=== PATIENT | female | born 1950 | race Caucasian/White ===

== ENCOUNTER → 2022-06-14 13:20 | Outpatient (CLI) | payer MEDICARE, OTHER, SELFPAY ==
[2022-06-14 14:55] LABS: BUN Creatinine Ratio 24.7 (6-22); Blood Urea Nitrogen 21 mg/dL (7-17); Estimated Glomerular Filt Rate > 60 mL/min (>60)
== END ==
PROVIDERS: PCP Internal Medicine Geriatric Medicine; Referring Provider Surgery; Visit Provider Surgery
DX: K43.9 Ventral hernia without obstruction or gangrene (principal)
CPT/HCPCS: 36415; 82565; 84520

== ENCOUNTER → 2022-06-16 12:06 | Outpatient (CLI) | payer MEDICARE, OTHER, SELFPAY ==
--- NOTE | 2022-06-16 12:08 | DI.CT.S_ITS ---
PROCEDURE: CT ABDOMEN PELVIS W CON INDICATIONS: assess hernia TECHNIQUE: After the administration of intravenous contrast, axial sections acquired from the lung bases to the pubic symphysis. Coronal and sagittal reformats were performed. For radiation dose reduction, the following was used: automated exposure control, adjustment of mA and/or kV according to patient size. COMPARISON: CT 03/31/2021. FINDINGS: Image quality: Excellent. Lung bases: The stable 6-7 mm ground-glass nodule in the right lower lobe (3/11). Stable 4 mm solid nodule, left lower lobe (3/8). Heart: No significant findings. ABDOMEN: Liver: Stable benign cyst. Gallbladder: Unremarkable. Biliary ducts: Unremarkable. Pancreas: Unremarkable. Spleen: Unremarkable. Adrenal Glands: Stable 1.1 cm left adrenal nodule; stability most consistent with a benign adrenal adenoma. Kidneys and Ureters: Unremarkable. Stomach and Bowel: Stomach, small bowel loops, and colon are unremarkable. Prior partial colectomy, surgical mass masses in the deep pelvis. Peritoneum: No abnormal intraperitoneal fluid. No free air. Ventral Wall: Ventral hernia with 2 cm neck in the left upper quadrant (2/39). Ventral hernia containing a knuckle of large bowel wall, the neck measures 5.6 cm (2/48). Diastasis recti, containing loops of nondistended small bowel. The dehiscence measures 11 cm wide. Abdominal Nodes: No retroperitoneal or mesenteric adenopathy by size criteria. Vessels: Aorta and inferior vena cava are normal in size. PELVIS: Pelvic Organs: Unremarkable. Bladder: Unremarkable. Pelvic Nodes: No enlarged lymph nodes. Miscellaneous: No hernias are seen. Bones: Unremarkable. IMPRESSION: 1. Multiple ventral hernias and large diastasis recti, as detailed above. 2. Ground-glass nodule in the right lower lobe measuring 6-7 mm. This is stable since 2020. Q2Y follow-up is recommended for a total of 5 years (until 2025). Dictated by: Crow Ventura M.D. on 06/16/2022 at 12:42 Approved by: Crow Ventura M.D. on 06/16/2022 at 12:49
== END ==
PROVIDERS: PCP Internal Medicine Geriatric Medicine; Referring Provider Surgery; Visit Provider Surgery
DX: K43.9 Ventral hernia without obstruction or gangrene (principal); M62.08 Separation of muscle (nontraumatic), other site; R91.1 Solitary pulmonary nodule; E27.9 Disorder of adrenal gland, unspecified; K76.89 Other specified diseases of liver
CPT/HCPCS: 74177; Q9967

== ENCOUNTER 2022-06-29 06:33 | Observation (INO) | payer MEDICARE, OTHER, SELFPAY ==
[2022-06-27 09:46] VITALS: BMI 35.8
[2022-06-29] VITALS (26 sets, daily range): BP systolic 105–184; BP diastolic 59–91; PULSE 54–77; RESP 17–29; TEMP 36.5–36.8; O2SAT 91–98; BMI 35.8
[2022-06-29] MEDS: LACTATED RINGERS 1,000 ML 100 ML IV ×3 (07:17→13:50)
--- NOTE | 2022-06-29 07:43 | PM.PREOP ---
Pre-operative Note Interval Note History & Physical reviewed/Exam performed by Physician: Yes Changes to H&P: No
[2022-06-29] MEDS: CLINDAMYCIN 900 MG/50 ML PIGGYBACK 50 MG IV (08:00)
[2022-06-29] MEDS: ACETAMINOPHEN IV 1,000 MG/100 ML VIAL 400 MG IV (08:15)
--- NOTE | 2022-06-29 08:22 | SUR.OPER ---
Addendum entered by Liz Dahl R.N. 06/29/22 09:03: in addition: placed gel pad between urinary catheter tubing and patient's right posterior upper leg. Original Note: Supine on padded OR bed, head on pillow, arms secured on padded arm boards at <90 degrees abduction, legs uncrossed, safety belt at thigh, tape over blanket over lower legs. Gel pad placed between londono and patient's leg.
[2022-06-29] MEDS: BUPIVACAINE 0.25% (PF) VIAL 30 ML INJ (08:33)
[2022-06-29 08:52] LABS: COVID19 -Nasal RAPID Negative (Negative)
--- NOTE | 2022-06-29 12:44 | P.OP_ITS ---
Operative Date/Time/Diagnoses Date of procedure: 06/29/22 Time of procedure: 12:44 Pre-op diagnosis: incisional ventral hernia Post-op diagnosis: same Procedure & Clinicians Procedure: open repair of incisional ventral hernia lysis of adhesions component seperation omentectomy Same procedure as scheduled: Yes Indications: 71 y.o woman with a symptomatic incisional ventral hernia following colostomy and reversal. Surgeon: Souleymane Chau Benefits Specialist: Vipul Vieyra Anesthesia Type: General Operative Notes Findings: zambian cheese defect of midline fascia from epigastric to pubis. Incisional nilesh ia at prior colostomy site Specimen(s): none sent Estimated Blood Loss (mL): 100 Procedure in detail: Patient was brought to the operating room placed supine on table. Bilateral lower extremity compression devices were applied. General anesthesia was induced and she was intubated with an endotracheal tube. [place] catheter was sterilely placed. She received 900 mg of clindamycin prior to skin incision. Time-out was performed. Midline abdominal scar was sharply excised. The fascia of the lower midline incision was grasped elevated and sharply incised. The abdomen was entered atraumatically. There were extensive intra-abdominal adhesions involving numerous loops of bowel to the anterior abdominal wall. An extensive lysis of adhesions was performed using sharp dissection. With the abdominal viscera free attention was then turned to the hernia defect. There was a Mauritanian cheese hernia extending from slightly above the level of the pubis to the epigastric region. In addition there was a left abdominal wall incisional hernia at her prior colostomy site. A towel was placed over the intra-abdominal viscera nor protected out of harm's way will attention was focused to the hernia repair. First the hernia sac in the midline was excised. Next the retro rectus plane was entered by making incision just lateral to the medial edge of the rectus muscle beginning with the left side. Posterior fascia was dissected off of the rectus careful to preserve the neurovascular bundles. Small perforating branches were controlled with electrocautery. Posterior dissection was carried out to the level of the semilunaris. A similar dissection was performed on the right side. With the posterior sheath mobilized there was still significant midline tension with reapproximation of the anterior sheath. Therefore skin flaps were raised bilaterally in order to expose the anterior rectus sheath on each side. The fascia was exposed to the level of the semilunaris. At this point an anterior component separation was performed. The fascia lateral to the rectus was incised in vertical fashion from the level of the umbilicus to the epigastric region on both sides. This provided excellent medial mobilization so that the anterior rectus sheath could be reapproximated at the midline without tension. The posterior sheath was tight its tissue quite attenuated. Therefore an omentectomy was performed of the greater omentum from the transverse colon to provide additional intra abdominal capacity. Omentectomy was performed by division with clamps and silk suture. With the omentum resected the posterior sheath was reapproximated with 2-0 Vicryl in running fashion. There were several rents in the posterior layer that were closed with Ethibond suture under direct visualization in transverse fashion to minimize the tension with care taken to protect the underlying bowel. With the posterior wall closed a large Bard Ventralex mesh was placed into the retro rectus space. The anti adhesive side was placed down and there was approximately 8-10 cm of coverage on either side of the midline. With Ethibond suture the mesh was then secured to the overlying rectus muscle. Hemostasis was achieved. The anterior sheath was then closed in running fashion using 1. PDS suture. Two nineteen Moroccan Bravo drains were placed over the anterior fascia and brought out through the abdominal wall. The subcutaneous tissue was reapproximated with Vicryl suture. Skin was closed with 4-0 Monocryl followed by the application of Dermabond and abdominal binder. The patient tolerated the operation well was extubated and transferred to recovery room in stable condition. The assistance of Dr. Vieyra was critical in this case given the extensive intra-abdominal adhesions adhesions and for safe exposure in order to expose the retro rectus space. Complications: none Post-operative Condition: stable Disposition: Acute Care
[2022-06-29] MEDS: OXYCODONE/ACETAMINOPHEN 5/325 TABLET 1 TAB PO (13:01)
[2022-06-29] MEDS: CYCLOBENZAPRINE 10 MG TABLET 5 MG PO ×2 (13:40→21:45)
[2022-06-29] MEDS: KETOROLAC 30 MG/ML VIAL IV ×2 (13:40→19:31)
--- NOTE | 2022-06-29 14:02 | PC.NURSE ---
Addendum entered by Leigh Jeff R.N. 06/29/22 16:54: Pt desats to 85-82% but recovers quickly, refusing O2 at this time Original Note: 1310 Pt arrived via bed from OR, oriented to room and call light system, VSS, medicated for pain 08/31, bed low and locked, call light within reach, will continue to monitor
[2022-06-29] MEDS: OXYCODONE IR 5 MG TABLET PO ×2 (17:54→21:45)
[2022-06-29] MEDS: PANTOPRAZOLE DR 40 MG TABLET PO (20:10)
[2022-06-29] MEDS: HYDROMORPHONE 0.5 MG INJ IV (20:10)
[2022-06-30] VITALS (7 sets, daily range): BP systolic 99–141; BP diastolic 54–64; PULSE 66–77; RESP 17–20; TEMP 36.3–37.1; O2SAT 94–98
[2022-06-30] MEDS: CALCIUM CARBONATE 500 MG TAB 1000 MG PO (00:03)
[2022-06-30] MEDS: LACTATED RINGERS 1,000 ML 100 ML IV (00:03)
[2022-06-30] MEDS: OXYCODONE IR 5 MG TABLET PO ×6 (00:43→21:22)
[2022-06-30] MEDS: KETOROLAC 30 MG/ML VIAL IV ×4 (00:44→18:14)
[2022-06-30] MEDS: HYDROMORPHONE 0.5 MG INJ IV (03:43)
[2022-06-30] MEDS: CYCLOBENZAPRINE 10 MG TABLET 5 MG PO ×3 (06:32→21:22)
[2022-06-30] MEDS: METOPROLOL ER 50 MG TABLET PO (08:55)
[2022-06-30] MEDS: ESCITALOPRAM 10 MG TABLET PO (08:55)
[2022-06-30] MEDS: LORATADINE 10 MG TABLET PO (08:55)
[2022-06-30] MEDS: PANTOPRAZOLE DR 40 MG TABLET PO ×2 (08:55→21:22)
[2022-06-30] MEDS: buPROPion XL 150 MG TAB 300 MG PO (08:55)
[2022-06-30] MEDS: DOXYCYCLINE HYCLATE 100 MG TABLET PO (08:55)
[2022-06-30] MEDS: MONTELUKAST 10 MG TABLET PO (08:55)
[2022-06-30] MEDS: ENOXAPARIN 40 MG/0.4 ML SYRINGE SUBCUT (08:55)
--- NOTE | 2022-06-30 08:56 | P.PN_ITS ---
Subjective Subjective Date Patient Seen: 06/30/22 Time Patient Seen: 08:59 Interval history: Overnight she had significant abdominal pain and required IV pain medication for control. Has not been out of bed yet. Tolerating liquids Exam Vital Signs (past 8 hours): - 06/30/22 04:00 Temperature 98.0 F Pulse Rate 74 Respiratory Rate 18 Blood Pressure 141/64 H Pulse Oximetry 96 Oxygen Delivery Method Room Air Oxygen Flow Rate 0 Narrative Exam Narrative: General adult woman alert oriented no acute distress Abdomen appropriately tender to palpation. NIKI drains left minimal output. Right serosanguineous. [facility] Medical History (Updated 06/27/22 @ 10:00 by Hilary Cuenca RN) Arthritis Asthma Diverticulitis (2020) Surgical History (Updated 06/27/22 @ 09:59 by Hilary Cuenca RN) History of colostomy reversal (08/2021) History of knee replacement History of partial hysterectomy (1974) Hx of foot surgery (~2016) Hx of hernia repair (2021) Hx of knee surgery Hx of shoulder surgery Hx of thumb surgery (2008) Hx of tonsillectomy (1962) Status post Daljit's procedure (03/27/21) Social History household members: none Smoking Status: Never smoker alcohol intake: current Assessment & Plan Post-op Postoperative Procedures: Procedures Operation Date: 06/29/22 07:45 Actual Procedure Side Surgeon p Open Repair of Incisional Ventral Hernia with mesh Souleymane Chau MD Postoperative plan narrative: 69-year-old woman postoperative day 1 status post open repair of incisional ventral hernia with component separation. -out of bed ambulate -physical therapy -drain teaching -transition from IV to p.o. pain medication -she is ready for discharge when ambulatory and pain is adequately controlled with p.o. medication -SCDs only for today. Abdominal drain is still sanguinous
--- NOTE | 2022-06-30 13:56 | CM.DANOTE ---
DCP: Case received, EMR reviewed and met with patient. Introduced self and role. Was able to obtain information regarding patient's baseline activity status prior to hospitalization, as well her current living situation. DCP assessment completed with information currently available. Patient is a 71 year old female who admitted yesterday morning to the care of the surgical team. PCP: Dr. Don at the [facility]. Payer: confirmed: [employer]. Patient came to the hospital via private vehicle for a surgical procedure. Patient had open repair of incisional ventral hernia. Patient had her surgery yesterday. Met with patient in her room. She is alert and oriented, confirmed that she resides in [facility], she lives alone. At her baseline, she is independent, and drives. P: Surgeon mentioned that patient will need pain control with p.o. versus IV, and ambulatory. Plan is home when stable. Amrita Hernandez RN/Patient Office Rep Discharge Planning/Care Management CM Discharge Assessment Start: 06/30/22 13:52 Freq: Status: Active Protocol: Document 06/30/22 13:52 (Rec: 06/30/22 13:56 [id number]) Discharge Planning Assessment Assigned Sustainability Project Manager Amrita Hernandez RN/Patient Office Rep Advance Directives? No History Provided By Patient,Medical Record Prior Living Arrangements House Household Members none Type of transporation used prior to Drives own vehicle admit Independent with ADL's Yes Is patient alert and oriented? Yes Caregiver for Another No Barriers to Discharge No Discharge Plan Home Transportation Arrangement Friend or family member Referrals Initiated None needed Whiteboard Updated in Patient Room with Yes name and ext. # of Sustainability Project Manager Review Status In Process Next Review Type Continued Stay Review Pre-Anesthesia Assessment Start: 06/27/22 09:46 Freq: Status: Active Protocol: Document 06/27/22 09:46 [facility] (Rec: 06/27/22 10:02 [facility] [id number]) Pre-Anesthesia Assessment Patient Information Reviewed Via Chart Review Primary Care Provider Vidhya Don Seen Specialist in Last 12 Months Yes Specialist Seen General surgeon Primary Language Tuvaluan Verification Lead Required No Height 5 ft 4.5 in Weight 212 lb Body Mass Index (BMI) 35.8 Hearing Ability Normal Visual Assist Glasses Dentition Type Teeth, Natural Present Hx Anesthesia Reactions No Hx Family Anesthesia Reaction No Hx Malignant Hyperthermia No Hx Blood Transfusions Yes: 2007 Hx Blood Transfusion Reaction No Anesthesia Review Requested No Physician President No alcohol intake never Smoking Status Never smoker Substance Use Type does not use Patient is completely paralyzed or No completely immobile Mental Status Oriented to own ability Is patient on oxygen? No Hx Sleep Apnea No Currently Taking a Beta Checo Yes: Metoprolol Anti-Coagulant Therapy No Cardiac Testing No Hx Pacemaker/ICD No Pacemaker Rep Required? No Urinary Catheter Present No Hx Urinary Self Catheterization No Diabetes No Patient No Lactating No Marital Status Patient Discharge Plan Description Return Home
--- NOTE | 2022-06-30 16:06 | PT.IIE ---
Current Diagnoses Ventral hernia without obstruction or gangrene (06/29/22) Surgery Performed Operation Date: 06/29/22 07:45 Actual Procedures p Open Repair of Incisional Ventral Hernia with mesh - Souleymane Chau MD Surgical History (Last Updated 06/27/22 @ 09:59 by Hilary Cuenca, RN) History of colostomy reversal (08/2021) History of knee replacement History of partial hysterectomy (1974) Hx of foot surgery (~2016) Hx of hernia repair (2021) Hx of knee surgery Hx of shoulder surgery Hx of thumb surgery (2008) Hx of tonsillectomy (1962) Status post Daljit's procedure (03/27/21) Medical History (Last Updated 06/27/22 @ 10:00 by Hilary Cuenca RN) Arthritis Asthma Diverticulitis (2020) Physical Therapy Inpatient Evaluation/Re-Eval M1 PT/OT-IP Prior Functional Status Start: 06/30/22 13:47 Freq: NEEDED Status: Active Protocol: Document 06/30/22 15:38 [facility] (Rec: 06/30/22 16:05 [facility] [id number]) Medical Review Prior Functional Status Medical History Reviewed Yes Diet/Fluid Consistency Regular Communication WNL Mobility and Gait WNL no AD Activities of Daily Living and IADL's indep Social History Household Members none Living Arrangements House Number of Floors (Floors) One Floor Number of Stairs To Enter/Railing? 1 VENUS Home Environment Standard Height Toilet,Walk in Shower Home Equipment Front Wheel Walker,Four Wheel Walker,Straight Cane,Raised Toilet Seat w/Armrests,Grab Bars In Shower Additional Social History Comment pt has 3 friends that will transition helping w/care for as long as she needs M2 PT-IP Current Condition Start: 06/30/22 13:47 Freq: NEEDED Status: Active Protocol: Document 06/30/22 15:38 [facility] (Rec: 06/30/22 16:05 [facility] [id number]) Physical Therapy Current Condition Current Condition Evaluation Date 06/30/22 Treatment Diagnosis Open incision ventral repair M3 PT-IP Subjective Start: 06/30/22 13:47 Freq: NEEDED Status: Active Protocol: Document 06/30/22 15:38 [facility] (Rec: 06/30/22 16:05 [facility] [id number]) Subjective Physical Therapy Visit Type Type Initial Evaluation Visit Start Time 14:40 Visit Stop Time 15:10 Total Visit Minutes 30 Number of MOLD FILLER P[employer] DOLLS Visits 0 Therapy Pain Assessment Pain Present Pain Present Pain Reported Location Abdomen Pain Management Techniques Re-positioning,Timing of Activity with Medications M4 PT-IP Mobility and Gait Start: 06/30/22 13:47 Freq: NEEDED Status: Active Protocol: Document 06/30/22 15:38 [facility] (Rec: 06/30/22 16:05 [facility] [id number]) PT-Bed Mobility Assessment Rolling Type of Rolling Log Rolling,Roll to Right Level of Assist Standby Assistance Supine to Sit Supine to Sit Head of Bed Elevated Sit to Supine Sit to Supine Independent,Bedrails Scooting Scooting to Edge of Bed Standby Assistance Scooting Up and Down in Bed Independent PT-Transfer Assessment Sit to and From Stand Sit to and from Stand Independent Equipment Transfer Assistive Device Gait Belt,Front Wheeled Walker Orthotic/Prosthetic Devices or Brace: No Gait Assessment Gait Gait Assistance Required: Standby Assistance Distance (Feet) 350 Able to Maintain Weight Bearing Status Yes During Gait Assistive Devices Assistive Device Gait Belt,Front Wheeled Walker Orthotic/Prosthetic Devices or Brace: No Gait Deviations General Gait Pattern Flexed Trunk Factors Limiting Gait Function Factors Limiting Gait Function Pain Stair Climbing Assessment Evaluation Level of Assist On Stairs Standby Assistance Devices Stair Climbing Assistive Devices Straight Cane Technique/Endurance Stair Climbing Direction Ascend and Descend Number of Steps Climbed 1 Query Text: PT-Balance Assessment Sitting Balance and Reactions Static Sitting Balance Ability Normal Dynamic Sitting Balance Ability Normal Standing Balance and Reactions Static Standing Balance Ability Good Dynamic Standing Balance Ability Good Device Used FWW M5 PT-IP Objective Assessments Start: 06/30/22 13:47 Freq: NEEDED Status: Active Protocol: Document 06/30/22 15:38 [facility] (Rec: 06/30/22 16:05 [facility] [id number]) Orientation Orientation/Cognition Level of Alertness Alert Language Function Ability No Deficits Noted Safety Awareness Understands Safety Issues Memory Description No Deficits Noted Gross Range of Motion Lower Extremity ROM Assessment Within Functional Limits Strength Lower Extremity Strength Assessment Within Functional Limits M6 PT-IP Treatment Start: 06/30/22 13:47 Freq: NEEDED Status: Active Protocol: Document 06/30/22 15:38 [facility] (Rec: 06/30/22 16:05 [facility] [id number]) Physical Therapy Treatment Education Education Provided Safety Other Treatments Other Treatment Performed edu forms designer and long handle shower brush may be helpful M7 PT-IP Assessment and Plan Start: 06/30/22 13:47 Freq: NEEDED Status: Active Protocol: Document 06/30/22 15:38 [facility] (Rec: 06/30/22 16:05 [facility] [id number]) PT Summary Assessment and Plan Potential Rehabilitation Potential Good Status of Condition at Evaluation Evolving Summary Assessment Summary Pt did well with mobility today with good distance, good safety with walker and was at most SBA for all activity. She demonstrated understanding w/log roll and safety. She has good assistance at home and did well with step. At this time, pt would bneeift from cont mobilization w/ nursing staff but does not require skilled PT Frequency of Treatment Frequency Of Treatment Discharge Recommendations To Nursing Amount of Assist Needed Standby Assistance Discharge Recommendations PT Discharge Recommendations Home with Assistance, Outpatient PT Transportation Needs at Discharge Private Vehicle
[2022-07-01] VITALS: BP 111/60; PULSE 66; RESP 12; TEMP 36.7; O2SAT 95
[2022-07-01] MEDS: KETOROLAC 30 MG/ML VIAL IV ×3 (00:45→13:35)
[2022-07-01 01:00] VITALS: O2SAT 95
[2022-07-01 04:00] VITALS: BP 123/63; PULSE 66; RESP 17; TEMP 36.3; O2SAT 97
[2022-07-01] MEDS: CYCLOBENZAPRINE 10 MG TABLET 5 MG PO ×2 (06:22→13:35)
[2022-07-01 07:30] VITALS: BP 117/60; PULSE 61; RESP 20; TEMP 36.9; O2SAT 95
[2022-07-01] MEDS: DOXYCYCLINE HYCLATE 100 MG TABLET PO (08:12)
[2022-07-01] MEDS: OXYCODONE IR 5 MG TABLET PO ×2 (08:13→13:34)
[2022-07-01] MEDS: ESCITALOPRAM 10 MG TABLET PO (08:13)
[2022-07-01] MEDS: PANTOPRAZOLE DR 40 MG TABLET PO (08:13)
[2022-07-01] MEDS: MONTELUKAST 10 MG TABLET PO (08:13)
[2022-07-01] MEDS: buPROPion XL 150 MG TAB 300 MG PO (08:13)
[2022-07-01] MEDS: LORATADINE 10 MG TABLET PO (08:13)
[2022-07-01] MEDS: METOPROLOL ER 50 MG TABLET PO (08:14)
[2022-07-01 08:44] VITALS: BP 117/60
[2022-07-01 12:00] VITALS: BP 108/60; PULSE 61; RESP 19; TEMP 35.6; O2SAT 96
--- NOTE | 2022-07-08 10:22 | PM.DS.1 ---
History of Present Illness History of Present Illness Date Patient Seen: 07/01/22 Chief complaint: Open Incisional Ventral Hernia Repair *OPB* Narrative: 71-year-old woman underwent a elective open incisional hernia repair 06/29/2022. Discharge Providers Provider Date of admission: 06/29/22 06:33 Discharge Date: 07/01/22 Primary care physician: Vidhya Don MD Consults: 06/29/22 12:40 Consult to Physical Therapy Evaluate & Treat Comment: Physician Instructions: Evaluate and Treat Discharge provider: Souleymane Chau MD Summary Hospital Course Discharge Diagnosis: Incisional ventral hernia Hospital Course: She underwent a large open incisional ventral hernia repair June 29, 2022. She had significant postoperative pain and remained hospitalized until July 01 at which point her pain was well controlled with oral medication she was ambulatory tolerating a diet and safe for discharge home. She will follow up in surgical clinic for drain removal once output is less than 50 mL per day. Exam Vital Signs (past 8 hours): Oxygen Delivery Method Room Air Oxygen Flow Rate 0 Narrative Exam Narrative: General adult woman alert oriented no acute distress Chest nonlabored respiration Abdomen soft appropriately tender to palpation. Drains serosanguineous. [facility] Medical History (Updated 06/27/22 @ 10:00 by Hilary Cuenca RN) Arthritis Asthma Diverticulitis (2020) Surgical History (Updated 06/27/22 @ 09:59 by Hilary Cuenca RN) History of colostomy reversal (08/2021) History of knee replacement History of partial hysterectomy (1974) Hx of foot surgery (~2016) Hx of hernia repair (2021) Hx of knee surgery Hx of shoulder surgery Hx of thumb surgery (2008) Hx of tonsillectomy (1962) Status post Daljit's procedure (03/27/21) Social History household members: none Smoking Status: Never smoker alcohol intake: current Discharge Plan Discharge Plan Patient Disposition: Home Provider Discharge Comment: -Okay to shower tomorrow with drains covered -Do not submerge wounds in water until seen in follow-up. -No lifting >10 lbs x 4 weeks. -Walking only for exercise for 4 weeks. -No driving while taking narcotics. -contact surgical clinic for drain removal when output is 30-50 mL in 24 hour. -abdominal binder is for comfort wear as needed Discharge orders & Medications Prescriptions: New docusate sodium [Colace] 100 mg capsule 100 mg PO BID Qty: 30 0RF acetaminophen [Tylenol] 325 mg capsule 650 mg PO QID PRN (Reason: pain) Qty: 60 0RF oxycodone 5 mg tablet 5 mg PO Q6H PRN (Reason: pain) Qty: 30 0RF ibuprofen 200 mg tablet 400 mg PO Q6H Qty: 60 0RF Continued telmisartan 80 mg tablet 80 mg PO DAILY montelukast 10 mg tablet 10 mg PO DAILY metoprolol succinate 50 mg tablet extended release 24 hr 50 mg PO DAILY escitalopram oxalate 10 mg tablet 10 mg PO DAILY Patient Comments: At bedtime doxycycline hyclate 100 mg capsule 100 mg PO DAILY cholecalciferol (vitamin D3) 50 mcg (2,000 unit) capsule 50 mcg PO DAILY bupropion HCl 300 mg tablet extended release 24 hr 300 mg PO DAILY Patient Comments: With weight loss gzuzcu-hslghus-fmettnk 5,000 mcg-100 mg-5 mg capsule 1 cap PO DAILY cetirizine [Zyrtec] 10 mg tablet 10 mg PO DAILY pantoprazole 40 mg Tablet,Delayed Release (Dr/Ec) 40 mg PO BID No Action tramadol 50 mg tablet 50 mg PO TID PRN (Reason: pain) Qty: 20 0RF Follow up/Referrals: Souleymane Chau MD [Physician] - (Drain removal in surgical clinic when output is 30-50 ml per 24hrs) Diet/Activity/Treatments Diet: Regular Skin/Wound/Dressing Care Report to your healthcare provider any signs of infection, such as:: chills, fever, increased pain, unusual drainage and unusual redness Visit Report/Discharge Packet Stand Alone Forms: Patient Portal/API, Stroke Signs & Symptoms Discharge Data Primary Care Provider: Vidhya Don Attending Provider: Souleymane Chau
== END 2022-07-01 16:24 | disposition home or self-care (01) ==
LOC: OR 06:34 → ICU 13:30
PROVIDERS: Admitting Provider Surgery; PCP Internal Medicine Geriatric Medicine; Referring Provider Surgery; Visit Provider Surgery
PROC: (CPT 49595; principal; 2022-06-29 07:45)
DX: K43.9 Ventral hernia without obstruction or gangrene (principal); K43.0 Incisional hernia with obstruction, without gangrene; K66.0 Peritoneal adhesions (postprocedural) (postinfection)
CPT/HCPCS: 49595; 15734 ×2; 87635; 97116; 97162; C9803; G0378; J0131; J0330; J1100; J1170; J1650; J1885; J2250; J2405; J2704; J3010; J3490

== ENCOUNTER 2022-07-13 21:50 | Inpatient (IN) | payer MEDICARE, OTHER, SELFPAY ==
[2022-07-13 22:01] VITALS: BP 123/75; PULSE 118; RESP 18; TEMP 37.1; O2SAT 97; BMI 35.5
--- NOTE | 2022-07-13 22:11 | DI.RAD.S_ITS ---
PROCEDURE: XR CHEST 1V INDICATIONS: suspected sepsis TECHNIQUE: One view of the chest was acquired. COMPARISON: [facility], CR, XR CHEST 1 VIEW, 04/05/2021, 1:37. FINDINGS: Surgical changes and devices: None. Lungs and pleura: Lungs are clear. No pleural effusions or pneumothorax. Mediastinum: Mediastinal contours appear normal. Heart size is normal. Bones and chest wall: No suspicious bony lesions. Overlying soft tissues appear unremarkable. IMPRESSION: 1. No acute cardiopulmonary disease. Dictated by: Jewel Basilio M.D. on 07/14/2022 at 0:22 Approved by: Jewel Basilio M.D. on 07/14/2022 at 0:22
[2022-07-13 22:56] LABS: Add Manual Diff / Slide Review NO; Basophils Absolute Auto 100 /uL (0-100); Basophils Percent Auto 0.6 % (0-2); Eosinophils Absolute Auto 0 /uL (0-450); Eosinophils Percent Auto 0.1 % (2-4); Hematocrit 36.9 % (36-46); Hemoglobin 12.4 g/dL (12.0-16.0); Lymphocytes Absolute Auto 1100 /uL (1100-4500); Lymphocytes Percent Auto 6.3 % (25-40); Mean Corpuscular HGB Conc 33.5 % (30-36); Mean Corpuscular Hemoglobin 28.3 PG (26-34); Mean Corpuscular Volume 84.6 fL (80-100); Monocytes Absolute Auto 1000 /uL (0-900); Monocytes Percent Auto 5.2 % (3-14); Neutrophils Absolute Auto 16000 /uL (1500-7000); Neutrophils Percent Auto 87.8 % (50-75); Platelet Count 407 X10^3/uL (150-400); Red Blood Cell Count 4.36 X10^6/uL (4.0-5.2); Red Cell Distribution Width 13.5 % (11.6-14.8); White Blood Cell Count 18.2 X10^3/uL (4.5-11.0)
[2022-07-13 23:04] LABS: INR 1.3 (0.9-1.3); Prothrombin Time 15.4 SECONDS (10.1-12.7)
[2022-07-13 23:07] LABS: PTT Partial Thromboplastin Tim 32 SECONDS (26-36)
[2022-07-13 23:08] LABS: Lactate (Lactic Acid) 1.3 mmol/L (0.7-2.1)
[2022-07-13 23:09] LABS: Alanine Aminotransferase 21 IU/L (<35); Albumin 3.8 g/dL (3.5-5.0); Albumin Globulin Ratio 1.2 (1.0-2.8); Alkaline Phosphatase 102 U/L (38-126); Aspartate Aminotransferase 20 IU/L (14-36); BUN Creatinine Ratio 15.6 (6-22); Bilirubin Total 1.5 mg/dL (0.2-1.3); Blood Urea Nitrogen 15 mg/dL (7-17); Calcium 8.6 mg/dL (8.4-10.2); Carbon Dioxide 24 mmol/L (22-32); Chloride 99 mmol/L (98-107); Estimated Glomerular Filt Rate > 60 mL/min (>60); Globulin 3.3 g/dL (1.7-4.1); Glucose 155 mg/dL (80-110); HEMOLYSIS < 15 (0-50); Lipase 47 U/L (23-300); Potassium 3.9 mmol/L (3.4-5.1); Sodium 134 mmol/L (137-145); Total Protein 7.1 g/dL (6.3-8.2)
[2022-07-13 23:12] VITALS: BP 107/57; PULSE 91; O2SAT 99
--- NOTE | 2022-07-13 23:16 | DI.CT.S_ITS ---
PROCEDURE: CT ABDOMEN PELVIS W CON INDICATIONS: abdomen pain, N/V, recent surgery TECHNIQUE: After the administration of IV contrast, axial sections were acquired from the lung bases to the pubic symphysis. Coronal and sagittal reformats were performed. For radiation dose reduction, the following was used: automated exposure control, adjustment of mA and/or kV according to patient size. COMPARISON: [facility], CT, CT ABDOMEN PELVIS WITH CONTRAST, 04/18/2021, 14:09. [facility], CT, CT ABDOMEN PELVIS WITH CONTRAST, 04/10/2021, 15:24. [facility], CT, CT ABDOMEN PELVIS W CON, 06/16/2022, 12:11. FINDINGS: Image quality: Excellent. Lung bases: A left lower lobe 0.4 cm nodule on series 3, image 3 appears unchanged. Heart: Heart is normal in size. ABDOMEN: Liver: There is hypoattenuation of the liver consistent with fatty infiltration. A lobulated cyst is noted in the right hepatic lobe. Wall Gallbladder: Within normal limits without calcified gallstones. Biliary ducts: No biliary ductal dilatation. Pancreas: Unremarkable. Spleen: Normal in size. Adrenal Glands: No adrenal nodules. Kidneys and Ureters: No hydronephrosis. Stomach and Bowel: Stomach, small bowel loops, and colon are normal in caliber and wall thickness. Peritoneum: No abnormal intraperitoneal fluid. No free air. Ventral Wall: There are postsurgical changes within the ventral abdominal wall with a midline incision noted. There is extensive subcutaneous edema with loculated subcutaneous fluid collections bilaterally as well as associated scattered foci of soft tissue gas in the collections. The findings are consistent with sequelae of recent surgery with suspected infection. Abdominal Nodes: No retroperitoneal or mesenteric adenopathy by size criteria. Vessels: Aorta and inferior vena cava are normal in size. PELVIS: Pelvic Organs: The uterus is surgically absent. Bladder: Unremarkable. Pelvic Nodes: No enlarged lymph nodes. Miscellaneous: No inguinal hernias are seen. Bones: Visualized osseous structures demonstrate no suspicious focal lesions. IMPRESSION: 1. Postsurgical changes within the ventral abdominal wall with multiple loculated fluid collections containing foci of internal gas. The findings are suspicious for possible abscess formation and correlation is recommended clinically. Dictated by: Jewel Basilio M.D. on 07/14/2022 at 0:53 Approved by: Jewel Basilio M.D. on 07/14/2022 at 0:58
--- NOTE | 2022-07-13 23:16 | ED.NAVMDI ---
HPI - Nausea/Vomiting/Diarrhea General Chief complaint: Dizziness Stated complaint: vomiting s/p abd surgery 2 wks ago Time Seen by Provider: 07/13/22 22:43 Source: patient Mode of arrival: Ambulatory History of Present Illness HPI Narrative: 71-year-old female nonsmoker with history of hypertension and recent ventral hernia repair 2 weeks ago presents with a family friend and a chief complaint of worsening abdominal pain and persistent nausea and vomiting over the past 24 hours or so. She states that she had her drains removed a few days ago and her symptoms have been going downhill ever since. She has increasing pain and decreasing tolerance of food and drink. She is become dizzy, weak and lightheaded and generally fatigued. She is had decreased bowel movements and denies any dysuria, frequency or urgency. She denies any obvious fever or chills. Related Data Home Medications Medication Instructions Recorded Confirmed biotin 5,000 mcg-choline 100 1 cap PO DAILY 06/09/22 06/29/22 mg-silicon 5 mg capsule bupropion HCl 300 mg 24 hr tablet, 300 mg PO DAILY Trying out to see 06/09/22 06/29/22 extended release if it helps cetirizine 10 mg tablet (Zyrtec) 10 mg PO DAILY Allergies 06/09/22 06/29/22 cholecalciferol (vitamin D3) 50 50 mcg PO DAILY 06/09/22 06/29/22 mcg (2,000 unit) capsule doxycycline hyclate 100 mg capsule 100 mg PO DAILY Rosacea 06/09/22 06/29/22 escitalopram oxalate 10 mg tablet 10 mg PO DAILY Stress? 06/09/22 06/29/22 metoprolol succinate 50 mg 50 mg PO DAILY Blood pressure 06/09/22 06/29/22 tablet,extended release 24 hr montelukast 10 mg tablet 10 mg PO DAILY Allergies 06/09/22 06/29/22 telmisartan 80 mg tablet 80 mg PO DAILY Blood pressure? 06/09/22 06/29/22 pantoprazole 40 mg tablet,delayed 40 mg PO BID 06/27/22 06/29/22 release Previous Rx's Medication Instructions Recorded acetaminophen 325 mg capsule 650 mg PO QID PRN pain #60 caps 06/30/22 (Tylenol) docusate sodium 100 mg capsule 100 mg PO BID #30 caps 06/30/22 (Colace) ibuprofen 200 mg tablet 400 mg PO Q6H #60 tabs 06/30/22 oxycodone 5 mg tablet 5 mg PO Q6H PRN pain #30 tabs 06/30/22 tramadol 50 mg tablet 50 mg PO TID PRN pain #20 tabs 07/06/22 Allergies Allergy/AdvReac Type Severity Reaction Status Date / Time adhesive tape Allergy Pulls Verified 06/29/22 07:19 skin off apple Allergy Makes Verified 06/29/22 07:19 mouth peel herrera Allergy Makes Verified 06/29/22 07:19 mouth peel chlorhexidine Allergy Rash Verified 07/13/22 22:01 [From Hibiclens] iodine Allergy Vergara Verified 06/29/22 07:19 minocycline Allergy Pt does Verified 06/29/22 07:19 not list reaction nickel Allergy Rash Verified 06/29/22 07:19 Penicillins Allergy Breathing Verified 06/29/22 07:19 valdecoxib [From Bextra] Allergy Verified 06/29/22 07:19 Review of Systems Review of Systems Narrative: GENERAL: See HPI HEENT: Denies sinus pain, ear pain, sore throat, difficulty swallowing, dizziness. RESPIRATORY: Denies dyspnea, cough, wheezing, hemoptysis, sputum. CARDIOVASCULAR: Denies chest pain, palpitations, orthopnea, edema, GASTROINTESTINAL: See HPI : Denies dysuria, frequency, incontinence, hematuria, urinary retention. MUSCULOSKELETAL: denies weakness, joint pain, or bony pain SKIN: Denies rash, skin lesions, or other NEUROLOGIC: Denies weakness, headache, numbness, change in speech, confusion, seizures, incoordination. PSYCHIATRIC: No concerning psychosocial issues. 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 Well-developed patient, in mild distress. She clearly feels unwell, holding an emesis bag HEAD: Atraumatic. Normocephalic. EYES: Pupils equal round and reactive. Extraocular motions intact. No scleral icterus. No injection or drainage. ENT: Dry mucous membrane Nose without bleeding, purulent drainage. Throat without erythema, tonsillar hypertrophy or exudate. Airway patent. NECK: Trachea midline. Non tender CARDIOVASCULAR: Regular rate and rhythm without murmurs, gallops, or rubs. RESPIRATORY: Clear to auscultation. Breath sounds equal bilaterally. No wheezes, rales, or rhonchi. GASTROINTESTINAL: Abdomen soft, distended with tenderness in the right lower quadrant. Central incision is clean, dry and intact, bowel sounds distant in decreased EXTREMITIES: No edema or joint tenderness. BACK: Nontender without deformity or crepitance. No flank tenderness. NEURO: AOx3. SKIN: Poor skin turgor No rash or erythema of visible areas Initial Vital Signs Initial Vital Signs: Vital Signs Temperature 98.7 F 07/13/22 22:01 Pulse Rate 118 H 07/13/22 22:01 Respiratory Rate 18 07/13/22 22:01 Blood Pressure 123/75 07/13/22 22:01 Pulse Oximetry 97 07/13/22 22:01 Oxygen Delivery Method Room Air 07/13/22 22:01 Course Orders Ordered: ED Orders 07/13/22 22:11 XR chest 1V Stat EKG-12 Lead Stat RT Consult Eval and Treat NOW 07/13/22 22:41 Blood Culture Stat Complete Blood Count AUTO DIFF Stat Comprehensive Metabolic Panel Stat Lactate (Lactic Acid) Stat Lipase Stat PTT Partial Thromboplastin Krishan Stat Procalcitonin Stat Prothrombin Time INR Stat 07/13/22 23:16 CT abdomen pelvis w con Stat 07/14/22 01:18 COVID19 -Nasal RAPID Stat Acetaminophen (Acetaminophen 325 Mg Tablet) 650 mg PO Q6H OZZY Last Admin: 07/14/22 02:57 Dose: 650 mg Documented By: CS Enoxaparin Sodium (Enoxaparin 30 Mg/0.3 Ml Syringe) 30 mg SUBCUT DAILY COUNT INCLUDES THE [facility] Famotidine (Famotidine 20 Mg/2 Ml Vial) 20 mg IV NOW COUNT INCLUDES THE [facility] Last Admin: 07/13/22 23:39 Dose: 20 mg Documented By: ROCKY Dextrose/Lactated Ringer's (Dextrose 5%-Lactated Ringers) 1,000 mls @ 120 mls/hr IV CONT COUNT INCLUDES THE [facility] Last Admin: 07/14/22 02:57 Dose: 120 mls/hr Documented By: FEDERICO Piperacillin Sod/Tazobactam (Sod 3.375 gm/ Sodium Chloride) 100 mls @ 25 mls/hr IV Q8H COUNT INCLUDES THE [facility] Ibuprofen (Ibuprofen 400 Mg Tablet) 400 mg PO Q4H PRN PRN Reason: Pain, Mild (1-3) Morphine Sulfate (Morphine 4 Mg/Ml Inj) 3 mg IV Q4HR PRN PRN Reason: Pain, Severe (7-10) Naloxone HCl (Naloxone 0.4 Mg/Ml Vial) 0.2 mg IV Q2MIN PRN PRN Reason: Opiate Reversal Ondansetron HCl (Ondansetron 4 Mg Odt) 4 mg SL NOW PRN PRN Reason: Nausea And Vomiting Ondansetron HCl (Ondansetron 4 Mg/2 Ml Inj) 4 mg IV NOW PRN PRN Reason: Nausea And Vomiting Oxycodone HCl (Oxycodone Ir 5 Mg Tablet) 5 mg PO Q3H PRN PRN Reason: Pain, Moderate (4-6) Pantoprazole Sodium (Pantoprazole 40 Mg Vial) 40 mg IV DAILY COUNT INCLUDES THE [facility] Prochlorperazine (Prochlorperazine 10 Mg/2 Ml Vial) 10 mg IV Q6HR PRN PRN Reason: Nausea Discontinued Medications Diphenhydramine HCl (Diphenhydramine 50 Mg/Ml Vial) 50 mg IV NOW ONE Stop: 07/13/22 23:23 Last Admin: 07/13/22 23:38 Dose: 50 mg Documented By: ROCKY Sodium Chloride (Normal Saline 0.9%) 1,000 mls @ 1,000 mls/hr IV BOLUS ONE Stop: 07/13/22 23:09 Last Infusion: 07/14/22 00:58 Dose: 0 mls/hr Documented By: Admin: 07/13/22 23:39 Dose: 1,000 mls/hr Documented By: ROCKY Piperacillin Sod/Tazobactam (Sod 4.5 gm/ Sodium Chloride) 100 mls @ 200 mls/hr IV NOW ONE Stop: 07/14/22 01:14 Last Infusion: 07/14/22 02:11 Dose: 0 mls/hr Documented By: Admin: 07/14/22 01:31 Dose: 200 mls/hr Documented By: ROCKY Methylprednisolone (Methylprednisolone 125 Mg/2 Ml Vial) 125 mg IV NOW ONE Stop: 07/13/22 23:23 Last Admin: 07/13/22 23:38 Dose: 125 mg Documented By: ROCKY Pantoprazole Sodium (Pantoprazole 40 Mg Vial) 40 mg IV NOW ONE Stop: 07/13/22 23:23 Last Admin: 07/13/22 23:40 Dose: 40 mg Documented By: ROCKY Consultations Consultation #1: Discussed with on-call general surgeon, Dr. Calles, she agrees with antibiotics, pain control, antiemetics and admission. Vital Signs Vital signs: Vital Signs - 8 hr 07/13/22 22:01 07/13/22 23:12 07/13/22 23:12 Temperature 98.7 F Pulse Rate 118 H 91 H Respiratory Rate 18 Blood Pressure 123/75 107/57 L Pulse Oximetry 97 99 Oxygen Delivery Method Room Air 07/13/22 23:30 07/13/22 23:30 07/14/22 00:11 Temperature Pulse Rate 94 H 88 Respiratory Rate Blood Pressure 110/63 Pulse Oximetry 97 99 Oxygen Delivery Method 07/14/22 00:30 07/14/22 01:00 07/14/22 01:01 Temperature Pulse Rate 87 89 Respiratory Rate Blood Pressure 119/69 Pulse Oximetry 99 100 Oxygen Delivery Method 07/14/22 01:01 Temperature Pulse Rate 89 Respiratory Rate Blood Pressure Pulse Oximetry 98 Oxygen Delivery Method MDM - Nausea/Vomiting/Diarrhea Lab Data 07/13/22 22:41 07/13/22 22:41 Labs: Lab Results 07/13/22 07/13/22 07/13/22 Range/Units 22:41 22:41 22:41 WBC 18.2 H (4.5-11.0) X10^3/uL RBC 4.36 (4.0-5.2) X10^6/uL Hgb 12.4 (12.0-16.0) g/dL Hct 36.9 (36-46) % MCV 84.6 (80-100) fL MCH 28.3 (26-34) PG MCHC 33.5 (30-36) % RDW 13.5 (11.6-14.8) % Plt Count 407 H (150-400) X10^3/uL Neut % (Auto) 87.8 H (50-75) % Lymph % (Auto) 6.3 L (25-40) % Stanley % (Auto) 5.2 (3-14) % Eos % (Auto) 0.1 L (2-4) % Baso % (Auto) 0.6 (0-2) % Neut # (Auto) 04649 H (3608-9175) /uL Lymph # (Auto) 1100 (8931-3944) /uL Stanley # (Auto) 1000 H (0-900) /uL Eos # (Auto) 0 (0-450) /uL Baso # (Auto) 100 (0-100) /uL PT 15.4 H (10.1-12.7) SECONDS INR 1.3 (0.9-1.3) APTT 32 (26-36) SECONDS Sodium 134 L (137-145) mmol/L Potassium 3.9 (3.4-5.1) mmol/L Chloride 99 (98-107) mmol/L Carbon Dioxide 24 (22-32) mmol/L BUN 15 (7-17) mg/dL Creatinine 0.96 (0.52-1.04) mg/dL Estimated GFR > 60 (>60) mL/min BUN/Creatinine Ratio 15.6 (6-22) Glucose 155 H (80-110) mg/dL Lactate (0.7-2.1) mmol/L Calcium 8.6 (8.4-10.2) mg/dL Total Bilirubin 1.5 H (0.2-1.3) mg/dL AST 20 (14-36) IU/L ALT 21 (<35) IU/L Alkaline Phosphatase 102 (38-126) U/L Total Protein 7.1 (6.3-8.2) g/dL Albumin 3.8 (3.5-5.0) g/dL Globulin 3.3 (1.7-4.1) g/dL Albumin/Globulin Ratio 1.2 (1.0-2.8) Lipase 47 (23-300) U/L Procalcitonin 0.15 (<0.5) ng/mL 07/13/22 Range/Units 22:41 WBC (4.5-11.0) X10^3/uL RBC (4.0-5.2) X10^6/uL Hgb (12.0-16.0) g/dL Hct (36-46) % MCV (80-100) fL MCH (26-34) PG MCHC (30-36) % RDW (11.6-14.8) % Plt Count (150-400) X10^3/uL Neut % (Auto) (50-75) % Lymph % (Auto) (25-40) % Stanley % (Auto) (3-14) % Eos % (Auto) (2-4) % Baso % (Auto) (0-2) % Neut # (Auto) (8805-8318) /uL Lymph # (Auto) (8357-4827) /uL Stanley # (Auto) (0-900) /uL Eos # (Auto) (0-450) /uL Baso # (Auto) (0-100) /uL PT (10.1-12.7) SECONDS INR (0.9-1.3) APTT (26-36) SECONDS Sodium (137-145) mmol/L Potassium (3.4-5.1) mmol/L Chloride (98-107) mmol/L Carbon Dioxide (22-32) mmol/L BUN (7-17) mg/dL Creatinine (0.52-1.04) mg/dL Estimated GFR (>60) mL/min BUN/Creatinine Ratio (6-22) Glucose (80-110) mg/dL Lactate 1.3 (0.7-2.1) mmol/L Calcium (8.4-10.2) mg/dL Total Bilirubin (0.2-1.3) mg/dL AST (14-36) IU/L ALT (<35) IU/L Alkaline Phosphatase (38-126) U/L Total Protein (6.3-8.2) g/dL Albumin (3.5-5.0) g/dL Globulin (1.7-4.1) g/dL Albumin/Globulin Ratio (1.0-2.8) Lipase (23-300) U/L Procalcitonin (<0.5) ng/mL MDM Narrative Medical decision making narrative: CC: 71-year-old female with recent abdominal surgery presents with nausea and vomiting Complicating co-morbidities: Age, BMI 34 Data collected from: Patient Medical records reviewed: Prior notes reviewed in our EMR Differential considered, but not limited to: Bowel obstruction, infection, dehydration, electrolyte abnormality Exam documented above, pertinent findings include: Dry mucous membranes and poor skin turgor, suggestion of dehydration, abdomen soft but distended and tender in the right lower quadrant Lab Test results independently reviewed as above. Pertinent findings: Leukocytosis with relative left shift, no signs of anemia, electrolytes without critical abnormalities, renal function at baseline Independently reviewed EKG as above Imaging studies independently reviewed: CTs suggests multiple loculated fluid collections suggestive of abscess Consultations: Dr. Calles, see details above Treatments: Fluids, antiemetics, antibiotics, pain control Patient with recent surgery presents with nausea and vomiting and signs of dehydration. Labs suggest a leukocytosis with left shift and imaging demonstrates no obstruction but there is suggestion of abscess. Patient requires hospitalization for ongoing treatment, stabilization and characterization of her condition. Patient and family understand and agree with diagnosis and plan Discharge Plan Departure Patient Disposition: Admitted As Inpatient Clinical Impression: Vomiting, Acute dehydration, Abdominal wall abscess Admit Date/Time: 07/14/22 01:15 Admit Provider: Fatemeh Calles
[2022-07-13 23:25] LABS: Procalcitonin 0.15 ng/mL (<0.5)
[2022-07-13 23:30] VITALS: BP 110/63; PULSE 94; O2SAT 97
[2022-07-13] MEDS: diphenhydrAMINE 50 MG/ML VIAL IV (23:38)
[2022-07-13] MEDS: methylPREDNISolone 125 MG/2 ML VIAL IV (23:38)
[2022-07-13] MEDS: FAMOTIDINE 20 MG/2 ML VIAL IV (23:39)
[2022-07-13] MEDS: SODIUM CHLORIDE 0.9% 1,000 ML 1000 ML IV (23:39)
[2022-07-13] MEDS: PANTOPRAZOLE 40 MG VIAL IV (23:40)
[2022-07-14] VITALS (16 sets, daily range): BP systolic 100–142; BP diastolic 49–76; PULSE 62–100; RESP 14–20; TEMP 35.8–36.7; O2SAT 96–100; BMI 35.5; BMI 34.8
[2022-07-14] MEDS: PIPERACILLIN/TAZO 4.5 GM in SODIUM CHLORIDE 0.9% 100 ML IV (01:31)
[2022-07-14 01:37] LABS: COVID19 -Nasal RAPID Negative (Negative)
[2022-07-14] MEDS: ACETAMINOPHEN 325 MG TABLET 650 MG PO ×2 (02:57→19:54)
[2022-07-14] MEDS: DEXTROSE 5%-LACTATED RINGERS 1,000 ML 120 ML IV (02:57)
--- NOTE | 2022-07-14 04:15 | PC.NURSE ---
Order for Pipercilin-tazobactium scheduled at 0130 not given because it was given in the ED. [facility] called and wants to change the antibiotic as pt has stated allergy to Zosyn. Zosyn given in ED along with benedryl, famotidine, and solumedrol for allergy to CT contrast dye. ED stated no issues with Zosyn there. Will let dayshift know the issues.
[2022-07-14 09:22] LABS: Add Manual Diff / Slide Review NO; Basophils Absolute Auto 0 /uL (0-100); Basophils Percent Auto 0.2 % (0-2); Eosinophils Absolute Auto 0 /uL (0-450); Hematocrit 33.1 % (36-46); Hemoglobin 11.3 g/dL (12.0-16.0); Lymphocytes Absolute Auto 500 /uL (1100-4500); Mean Corpuscular Hemoglobin 29.2 PG (26-34); Mean Corpuscular Volume 85.9 fL (80-100); Monocytes Absolute Auto 200 /uL (0-900); Monocytes Percent Auto 2.2 % (3-14); Neutrophils Absolute Auto 9400 /uL (1500-7000); Neutrophils Percent Auto 92.6 % (50-75); Platelet Count 272 X10^3/uL (150-400); Red Blood Cell Count 3.85 X10^6/uL (4.0-5.2); Red Cell Distribution Width 13.8 % (11.6-14.8); White Blood Cell Count 10.1 X10^3/uL (4.5-11.0)
--- NOTE | 2022-07-14 11:25 | CM.DANOTE ---
Initial DCP Assessment Note Pt is a 71 yo female, resident of [place], arrives to the ER with complaints of dizziness and N/V/D, now two weeks s/p ventral hernia repair PCP: Vidhya Don Payer: [facility] Spoke w/Dr Chau this morning who anticipates taking patient to the OR today to drain the abdominal wall abscess that's been seen on imaging. Dr Chau anticipates placing a wound vac on in the OR Patient will be discharged home as early as tomorrow and will require/benefit from 1. Home wound vac 2. HH RN to assist in changing wound vac x2 weekly 3. New patient appt at [place] wound care clinic P [phone] Met w/patient to introduce self and role. Patient w/quite an extensive hx of abd surgery and post operative complications; hx ostomy and wound vac, lengthy stay at [facility] and subsequent stay at [facility] Patient wants to return home and feels she can do this if she has assist with the wound vac changes. Patient requests a referral to [facility] services and is agreeable to outpatient wound care follow up at [facility] if it's available. PCP Vidhya Don works out of the [facility] at [place] Patient reports she does not have assistance from anyone once home. Patient is indp and active at baseline, drives, and hopeful she can continue to do this s/p surgery and discharge from PT order placed for post operative assist in dispo recommendations; discussed w/ Jody, PT Referral to [facility] started then placed call to Carlos Sargent at [facility] P [phone] Email: [email or web address] who suggested emailing patient's demo sheet to begin the referral and insurance auth process for the home wound vac. H+P, info on wound vac etc needs to be sent to Carlos once available Plan: Anticipate discharge home w/wound vac thru [facility], via friend to transport, with [place] [facility]IND[facility] RN (start of care?) and outpatient wound care (attempting to secure an appt before discharge) CM team following closely for coordination NIURKA Munguia Discharge Planning/Care Management CM Discharge Assessment Start: 07/14/22 11:12 Freq: Status: Active Protocol: Document 07/14/22 11:13 RUFINA (Rec: 07/14/22 11:25 [email or web address] [id number]) Discharge Planning Assessment Assigned New Car [employer]ic NIURKA Terrell DPOA/Assigned Designee Name Roopa Cooper, friend Contact Information [phone] Advance Directives? No History Provided By Patient Household Members none Type of transporation used prior to Drives own vehicle admit Willing to Return to Facility? No: Recent stay at [facility], wants to go home Independent with ADL's Yes Is patient alert and oriented? Yes Patient/Family Preference Home with Home Health Barriers to Discharge No Discharge Plan Home with Home Health Transportation Arrangement Friend or family member Referrals Initiated Home Health Additional Comment wound vac, HH RN, wound care clinic SNF/HH Preference [facility] Has Agency SNF been contacted Yes
[2022-07-14] MEDS: PANTOPRAZOLE 40 MG VIAL IV (11:45)
--- NOTE | 2022-07-14 12:42 | CM.DPNOTE ---
David from [facility] said they can see the pt. for RN services on Monday, 07/18. He will add her to their schedule. I told David there is a good chance she will be discharged on Mon. 07/15. Lauren Chavarria CM Assist.
[2022-07-14] MEDS: PIPERACILLIN/TAZO 3.375 GM in SODIUM CHLORIDE 0.9% 100 ML IV ×2 (12:51→21:07)
--- NOTE | 2022-07-14 13:00 | PT-IP ANOTE ---
Physical therapy order received. Pt discussed at rounds. She is going to surgery today. Hold PT eval until tomorrow after surgery.
--- NOTE | 2022-07-14 13:24 | PM.HP.1 ---
History of Present Illness History of Present Illness Date Patient Seen: 07/14/22 Chief complaint: vomiting s/p abd surgery 2 wks ago Narrative: 71-year-old woman 2 weeks status post open ventral hernia repair of a large abdominal incisional hernia with retro rectus mesh placement. She had surgical drains which were within the abdominal wall removed several days ago in surgical clinic and subsequently she developed abdominal pain and nausea. Yesterday she had significant emesis and has been unable to keep food down. On arrival last night to the emergency department at [facility] she was found to have a white blood cell count of 18 afebrile vital signs were within normal limits. CT abdomen pelvis demonstrates extensive postsurgical changes within the abdominal wall with fluid collections. No distinct walled fluid collection. She feels significantly better than she did last night at admission. No further nausea or emesis. After fluid resuscitation white blood cell count is now 10. She has had no wound drainage from the incision she reports that the surgical drains been serosanguineous character. Patient History Medical History Arthritis Asthma Diverticulitis (2020) Surgical History History of colostomy reversal (08/2021) History of knee replacement History of partial hysterectomy (1974) Hx of foot surgery (~2016) Hx of hernia repair (2021) Hx of knee surgery Hx of shoulder surgery Hx of thumb surgery (2008) Hx of tonsillectomy (1962) Status post Daljit's procedure (03/27/21) Family & Social History Social History: household members none Safety & Behavioral: Feels Safe in Current Yes Environment Been Physically Hurt or No Threatened By a Person Tobacco & Substance use: Smoking Status Never smoker alcohol intake current alcohol intake frequency holiday/special occasion Substance Use Type does not use Meds Home Medications and Allergies Home Medications Medication Instructions Recorded Confirmed Type biotin 5,000 mcg-choline 100 1 cap PO DAILY 06/09/22 07/14/22 History mg-silicon 5 mg capsule bupropion HCl 300 mg 24 hr tablet, 300 mg PO DAILY Trying out to see 06/09/22 07/14/22 History extended release if it helps cetirizine 10 mg tablet (Zyrtec) 10 mg PO DAILY Allergies 06/09/22 07/14/22 History cholecalciferol (vitamin D3) 50 50 mcg PO DAILY 06/09/22 07/14/22 History mcg (2,000 unit) capsule doxycycline hyclate 100 mg capsule 100 mg PO DAILY Rosacea 06/09/22 07/14/22 History escitalopram oxalate 10 mg tablet 10 mg PO DAILY Stress? 06/09/22 07/14/22 History metoprolol succinate 50 mg 50 mg PO DAILY Blood pressure 06/09/22 07/14/22 History tablet,extended release 24 hr montelukast 10 mg tablet 10 mg PO DAILY Allergies 06/09/22 07/14/22 History telmisartan 80 mg tablet 80 mg PO DAILY Blood pressure? 06/09/22 07/14/22 History pantoprazole 40 mg tablet,delayed 40 mg PO BID 06/27/22 07/14/22 History release acetaminophen 325 mg capsule 650 mg PO QID PRN pain #60 caps 06/30/22 07/14/22 Rx (Tylenol) docusate sodium 100 mg capsule 100 mg PO BID #30 caps 06/30/22 07/14/22 Rx (Colace) ibuprofen 200 mg tablet 400 mg PO Q6H #60 tabs 06/30/22 07/14/22 Rx oxycodone 5 mg tablet 5 mg PO Q6H PRN pain #30 tabs 06/30/22 07/14/22 Rx tramadol 50 mg tablet 50 mg PO TID PRN pain #20 tabs 07/06/22 07/14/22 Rx Allergies Allergy/AdvReac Type Severity Reaction Status Date / Time adhesive tape Allergy Pulls Verified 06/29/22 07:19 skin off apple Allergy Makes Verified 06/29/22 07:19 mouth peel herrera Allergy Makes Verified 06/29/22 07:19 mouth peel chlorhexidine Allergy Rash Verified 07/13/22 22:01 [From Hibiclens] iodine Allergy Vergara Verified 06/29/22 07:19 minocycline Allergy Pt does Verified 06/29/22 07:19 not list reaction nickel Allergy Rash Verified 06/29/22 07:19 Penicillins Allergy Breathing Verified 06/29/22 07:19 valdecoxib [From Bextra] Allergy Verified 06/29/22 07:19 Exam Vital Signs (past 8 hours): - 07/14/22 08:15 Temperature 97.3 F L Pulse Rate 62 Respiratory Rate 17 Blood Pressure 110/62 Pulse Oximetry 96 Oxygen Flow Rate 0 Oxygen Delivery Method Room Air Oxygen Flow Rate 0 Narrative Exam Narrative: General adult woman alert oriented no acute distress Chest nonlabored respiration Abdomen midline incision intact. Mild tenderness the inferior portion of the incision below the level of the umbilicus. No cellulitis or active drainage. No peritonitis. Objective Labs 07/14/22 09:02 07/13/22 22:41 Labs: Laboratory Results - last 24 hr 07/13/22 07/13/22 07/13/22 22:41 22:41 22:41 WBC 18.2 H RBC 4.36 Hgb 12.4 Hct 36.9 MCV 84.6 MCH 28.3 MCHC 33.5 RDW 13.5 Plt Count 407 H Neut % (Auto) 87.8 H Lymph % (Auto) 6.3 L [place] % (Auto) 5.2 Eos % (Auto) 0.1 L Baso % (Auto) 0.6 Neut # (Auto) 49906 H Lymph # (Auto) 1100 [place] # (Auto) 1000 H Eos # (Auto) 0 Baso # (Auto) 100 PT 15.4 H INR 1.3 APTT 32 Sodium 134 L Potassium 3.9 Chloride 99 Carbon Dioxide 24 BUN 15 Creatinine 0.96 Estimated GFR > 60 BUN/Creatinine Ratio 15.6 Glucose 155 H Lactate Calcium 8.6 Total Bilirubin 1.5 H AST 20 ALT 21 Alkaline Phosphatase 102 Total Protein 7.1 Albumin 3.8 Globulin 3.3 Albumin/Globulin Ratio 1.2 Lipase 47 Procalcitonin 0.15 SARS-CoV-2 (PCR) 07/13/22 07/14/22 07/14/22 22:41 01:18 09:02 WBC 10.1 RBC 3.85 L Hgb 11.3 L Hct 33.1 L MCV 85.9 MCH 29.2 MCHC 34.0 RDW 13.8 Plt Count 272 Neut % (Auto) 92.6 H Lymph % (Auto) 5.0 L [place] % (Auto) 2.2 L Eos % (Auto) 0.0 L Baso % (Auto) 0.2 Neut # (Auto) 9400 H Lymph # (Auto) 500 L [place] # (Auto) 200 Eos # (Auto) 0 Baso # (Auto) 0 PT INR APTT Sodium Potassium Chloride Carbon Dioxide BUN Creatinine Estimated GFR BUN/Creatinine Ratio Glucose Lactate 1.3 Calcium Total Bilirubin AST ALT Alkaline Phosphatase Total Protein Albumin Globulin Albumin/Globulin Ratio Lipase Procalcitonin SARS-CoV-2 (PCR) Negative Assessment & Plan Assessment and plan (1) Fluid collection at surgical site: Status: Acute Assessment & Plan narrative: 71-year-old woman 2 weeks status post open ventral hernia repair of a large incisional hernia. CT abdomen pelvis reviewed personally demonstrates fluid collection within the abdominal wall unclear whether this is seroma versus abscess. Will start Zosyn and vancomycin empirically has she does have mesh in a retro rectus position. I reviewed the findings with the patient and my recommendations that we proceed to the operating room today for incision and drainage of abdominal wall fluid collection for cultures with washout and possible wound VAC placement. Her questions have been answered and she is in agreement with this plan. -NPO -Zosyn vancomycin -
[2022-07-14] MEDS: LACTATED RINGERS 1,000 ML 100 ML IV ×2 (15:26→17:01)
--- NOTE | 2022-07-14 16:46 | SUR.OPER ---
Supine on padded OR bed, head on pillow, arms secured on padded arm boards at <90 degrees abduction, legs uncrossed, safety belt at thigh, tape over blanket over lower legs.
[2022-07-14] MEDS: VANCOMYCIN 1,000 MG VIAL 1000 MG TOP (17:03)
[2022-07-14] MEDS: OXYCODONE IR 5 MG TABLET PO ×2 (17:27→18:25)
--- NOTE | 2022-07-14 17:42 | P.OP_ITS ---
Operative Date/Time/Diagnoses Date of procedure: 07/14/22 Time of procedure: 17:42 Pre-op diagnosis: Fluid collection at surgical site Post-op diagnosis: same Procedure & Clinicians Procedure: Incision and drainage of abdominal wall fluid collection Same procedure as scheduled: Yes Indications: 71-year-old woman who underwent a open repair of a large incisional hernia in retro rectus fashion 2 weeks ago. She presented to the emergency department yesterday with abdominal pain nausea vomiting found to have a large fluid collection. Surgeon: Souleymane Chau Anesthesia Type: General Operative Notes Findings: 500 mL of serous fluid. Fascia is intact. Small amount of fat necrosis within the subcutaneous tissue at the level of the umbilicus. Specimen(s): other (Abdominal wall fluid collection) Estimated Blood Loss (mL): 5 Procedure in detail: Patient was brought to the operating room placed supine on the table. Bilateral lower extremity compression devices were applied. General anesthesia was induced and she was intubated with an endotracheal tube. She was prepped and draped in sterile fashion. Time-out was performed. A limited opening of the midline incision was made near the level of the umbilicus. The subcutaneous tissue was divided. Subcutaneous tissue was notable for some degree of fat necrosis within the abdominal wall. Beneath the subcutaneous tissue and above the fascia there was approximately 500 mL of serous fluid that was encountered. Culture was taken in the fluid was removed. Using a Pulsavac 6 L of saline with vancomycin was used to thoroughly irrigate the abdominal wall. Inspection of the anterior abdominal sheath demonstrated an intact fascia. No major purulence was noted. Two nineteen [place] drains were placed into the abdominal wall laying over the anterior sheath. Skin was reapproximated using interrupted nylon suture. She tolerated the procedure well was extubated and transferred to recovery in stable condition. Complications: none Post-operative Condition: stable Plan for aftercare: Await wound culture.
[2022-07-14] MEDS: VANCOMYCIN 1,500 MG/300 ML PIGGYBACK 200 MG IV (18:18)
[2022-07-14] MEDS: SODIUM CHLORIDE 0.9% FLUSH 10 ML IV ×2 (20:46→20:54)
[2022-07-14] MEDS: MORPHINE 4 MG/ML INJ 3 MG IV (20:54)
[2022-07-14] MEDS: SODIUM CHLORIDE 0.9% 250 ML 21 ML IV (20:55)
[2022-07-15] MEDS: OXYCODONE IR 5 MG TABLET PO (00:54)
[2022-07-15] MEDS: ACETAMINOPHEN 325 MG TABLET 650 MG PO ×3 (00:54→13:24)
[2022-07-15] MEDS: diphenhydrAMINE 25 MG TABLET PO ×2 (01:13→08:16)
[2022-07-15] MEDS: HYDROMORPHONE 0.5 MG INJ IV ×2 (03:16→08:16)
[2022-07-15] MEDS: SODIUM CHLORIDE 0.9% FLUSH 10 ML IV ×3 (03:17→08:17)
[2022-07-15] MEDS: PIPERACILLIN/TAZO 3.375 GM in SODIUM CHLORIDE 0.9% 100 ML IV (04:58)
[2022-07-15 06:23] VITALS: BP 110/56; PULSE 67; RESP 19; TEMP 36.3; O2SAT 99
[2022-07-15 06:24] LABS: Add Manual Diff / Slide Review NO; Basophils Absolute Auto 100 /uL (0-100); Basophils Percent Auto 0.5 % (0-2); Eosinophils Absolute Auto 100 /uL (0-450); Eosinophils Percent Auto 0.8 % (2-4); Hematocrit 26.1 % (36-46); Hemoglobin 8.9 g/dL (12.0-16.0); Lymphocytes Absolute Auto 800 /uL (1100-4500); Lymphocytes Percent Auto 6.8 % (25-40); Mean Corpuscular HGB Conc 34.1 % (30-36); Mean Corpuscular Hemoglobin 29.1 PG (26-34); Mean Corpuscular Volume 85.5 fL (80-100); Monocytes Absolute Auto 500 /uL (0-900); Monocytes Percent Auto 3.8 % (3-14); Neutrophils Absolute Auto 10300 /uL (1500-7000); Neutrophils Percent Auto 88.1 % (50-75); Platelet Count 251 X10^3/uL (150-400); Red Blood Cell Count 3.05 X10^6/uL (4.0-5.2); Red Cell Distribution Width 13.7 % (11.6-14.8); White Blood Cell Count 11.7 X10^3/uL (4.5-11.0)
[2022-07-15 06:33] LABS: Blood Urea Nitrogen 15 mg/dL (7-17); Calcium 7.8 mg/dL (8.4-10.2); Carbon Dioxide 26 mmol/L (22-32); Chloride 106 mmol/L (98-107); Estimated Glomerular Filt Rate > 60 mL/min (>60); Glucose 130 mg/dL (80-110); HEMOLYSIS < 15 (0-50); Potassium 3.8 mmol/L (3.4-5.1); Sodium 137 mmol/L (137-145)
[2022-07-15 08:00] VITALS: BP 120/52; PULSE 72; RESP 17; TEMP 36.3; O2SAT 97
[2022-07-15] MEDS: ENOXAPARIN 40 MG/0.4 ML SYRINGE SUBCUT (08:15)
[2022-07-15] MEDS: IBUPROFEN 400 MG TABLET PO ×2 (08:16→13:24)
[2022-07-15] MEDS: PANTOPRAZOLE 40 MG VIAL IV (08:17)
--- NOTE | 2022-07-15 11:24 | PT.IIE ---
Current Diagnoses Other specified complications of surgical and medical care, not elsewhere classified, initial encounter (07/14/22) Surgery Performed Operation Date: 07/14/22 16:00 Actual Procedures p Incision and Drainage Abdominal Wound - Souleymane Chau MD Surgical History (Last Reviewed 07/14/22 @ 04:43 by Carlos Cardoza DO) History of colostomy reversal (08/2021) History of knee replacement History of partial hysterectomy (1974) Hx of foot surgery (~2016) Hx of hernia repair (2021) Hx of knee surgery Hx of shoulder surgery Hx of thumb surgery (2008) Hx of tonsillectomy (1962) Status post Daljit's procedure (03/27/21) Medical History (Last Reviewed 07/14/22 @ 04:43 by Carlos Cardoza DO) Arthritis Asthma Diverticulitis (2020) Physical Therapy Inpatient Evaluation/Re-Eval M1 PT/OT-IP Prior Functional Status Start: 07/15/22 11:26 Freq: NEEDED Status: Active Protocol: Document 07/15/22 11:24 DLM (Rec: 07/15/22 11:39 DLM [id number]) Medical Review Prior Functional Status Medical History Reviewed Yes Diet/Fluid Consistency Regular Communication WNL Mobility and Gait Independent without device Activities of Daily Living and IADL's Independent before abdominal surgery. She has been getting help since abdominal surgery two weeks ago. She has friends to help with dog, cleaning, shopping. She took a shower when friend present for safety after surgery. She has 3 small dogs at home. Prior Functional Level (Other details) Hospitalized two weeks ago for abdominal surgery. Social History Household Members none Living Arrangements House Number of Floors (Floors) One Floor Number of Stairs To Enter/Railing? one Home Environment Standard Height Toilet,Walk in Shower Home Equipment Front Wheel Walker,Four Wheel Walker,Shower Seat without Backrest,Hand Held Shower,Grab Bars Near Toilet,Grab Bars In Shower Employment Status Retired M2 PT-IP Current Condition Start: 07/15/22 11:26 Freq: NEEDED Status: Active Protocol: Document 07/15/22 11:24 DLM (Rec: 07/15/22 11:39 DLM [id number]) Physical Therapy Current Condition Current Condition Evaluation Date 07/15/22 Treatment Diagnosis abdominal abscess, impaired balance/gait Onset Date 07/14/22 M3 PT-IP Subjective Start: 07/15/22 11:26 Freq: NEEDED Status: Active Protocol: Document 07/15/22 11:24 DLM (Rec: 07/15/22 11:39 DL [id number]) Subjective Physical Therapy Visit Type Type Initial Evaluation Visit Start Time 11:00 Visit Stop Time 11:24 Total Visit Minutes 24 Number of GROUP DYNAM[employer] INSTRUCTOR Visits 0 Physical Therapy Visit Comments Patient Comments She feels safe to go home today with assist from her friends. She reports one of her friends is a nurse. Patient Goals Discharge home Therapy Pain Assessment Pain When Pain Assessed During Mobility Pain Present Pain Present Pain Reported Location Abdomen Intensity 3 Scale Used Numeric (0 - 10) Description Aching M4 PT-IP Mobility and Gait Start: 07/15/22 11:26 Freq: NEEDED Status: Active Protocol: Document 07/15/22 11:24 DLM (Rec: 07/15/22 11:39 DL [id number]) PT-Bed Mobility Assessment Rolling Type of Rolling Log Rolling Level of Assist Independent Supine to Sit Supine to Sit Independent,Bedrails Sit to Supine Sit to Supine Independent,Bedrails Scooting Scooting to Edge of Bed Independent Scooting Up and Down in Bed Independent PT-Transfer Assessment Sit to and From Stand Sit to and from Stand Independent Equipment Transfer Assistive Device None Transfers Transfer Destination Bed,Toilet Transfer Technique Stand Step Pivot Transfer Ability Level of Assist Standby Assistance,Use of Upper Extremities Comments Mobility Comments she can manage her balance if she has UE support, observed posterior and lateral losses of balance without device and without UE support Gait Assessment Gait Gait Assistance Required: Independent Distance (Feet) 200 Assistive Devices Assistive Device Front Wheeled Walker Factors Limiting Gait Function Factors Limiting Gait Function Decreased Activity Tolerance, Pain,Poor Balance Comments Gait Comments she needs CG/min assist for gait without a device due to intermittent losses of balance with signficant sway, no losses of balance observed with use of the FWW, pt agrees to use a walker at home to manage her balance PT-Balance Assessment Sitting Balance and Reactions Static Sitting Balance Ability Normal Dynamic Sitting Balance Ability Normal Standing Balance and Reactions Static Standing Balance Ability Good Dynamic Standing Balance Ability Fair M5 PT-IP Objective Assessments Start: 07/15/22 11:26 Freq: NEEDED Status: Active Protocol: Document 07/15/22 11:24 DLM (Rec: 07/15/22 11:39 DL [id number]) Orientation Orientation/Cognition Level of Alertness Alert Orientation Name,Age,Birthday,Month,Date, Year,Day of Week,Place, Situation Language Function Ability No Deficits Noted Safety Awareness Understands Safety Issues Memory Description No Deficits Noted Comments good awareness of her decreased balance today Gross Range of Motion Upper Extremity ROM Assessment Within Functional Limits Lower Extremity ROM Assessment Within Functional Limits Strength Upper Extremity Strength Assessment Within Functional Limits Lower Extremity Strength Assessment Within Functional Limits Coordination Assessment Gross Coordination Gross Coordination WNL Sensation Assessment Sensation Gross Sensation WNL Muscle Tone Muscle Tone WNL Yes M6 PT-IP Treatment Start: 07/15/22 11:26 Freq: NEEDED Status: Active Protocol: Document 07/15/22 11:24 DL (Rec: 07/15/22 11:39 [facility] [id number]) Physical Therapy Treatment Education Education Provided Safety Other Treatments Other Treatment Performed education to manage abdominal pain and balance post-op Pt agrees to use her walker at home to manage her balance and decrease her fall risks M7 PT-IP Assessment and Plan Start: 07/15/22 11:26 Freq: NEEDED Status: Active Protocol: Document 07/15/22 11:24 DLM (Rec: 07/15/22 11:39 DL [id number]) PT Summary Assessment and Plan Potential Rehabilitation Potential Excellent Status of Condition at Evaluation Evolving Summary Impairments Pain,Balance,Gait,Activity Tolerance Progress Towards Goals Safe For Discharge Assessment Summary Veronica is alert and resting in bed. She is having abdominal pain after surgery. She has been able to get up to the bathroom with nursing. Noted decreased standing balance today with gait. She had lateral and posterior losses of balance during gait without a device needing CG/min assist. Gait training was performed with a FWW which better managed her balance. Pt agrees to use the FWW for gait to decrease her fall risks. She has a 3 wheeled and a 4 wheeled walker at home that she has used in the past. She appears safe to discharge home using the wheeled walker and assist of friends. Frequency of Treatment Frequency Of Treatment Discharge Treatment Plan Other Recommendations and Next Treatment training completed this visit Focus Precautions Abdominal Surgery Precautions Log Roll,Lifting Restrictions, Gait Belt above Incisional Area Other Precautions she has drains and abdominal binder Recommendations To Nursing Amount of Assist Needed Standby Assistance Discharge Recommendations PT Discharge Recommendations Home with Assistance Other Discharge Recommendations she has friends set-up to help as needed at home Transportation Needs at Discharge Private Vehicle
--- NOTE | 2022-07-15 11:35 | CM.DPNOTE ---
DC Note Discharge expected today however no order yet. Dr Chau anticipates discharging patient home w/friend Roopa (who is an RN) with services. Patricia drains are staying in and will be removed at follow up visit Patient pleased and will have friend to transport Plan: Discharge home w/friend to assist as needed, friend to transport, [facility] RN available Monday to see patient at her home in [place], close outpatient follow up for removal of patricia drains Updated Carlos at 3M- no need for home wound vac JW
[2022-07-15 11:59] VITALS: BP 106/48; PULSE 67; RESP 17; TEMP 36.4; O2SAT 98
--- NOTE | 2022-07-15 12:58 | CM.DPNOTE ---
Addendum entered by Lauren Chavarria 07/15/22 13:20: David responded by email saying everything's good and they are scheduled to see her on Monday. Tamika Chavarria CMA Original Note: Emailed [facility] letting him know pt. discharging today. Provider order is in along with F2F and hh order. Missing dc summary at this time. I told him not sure if there will be one, and to let me know if everything is okay. Lauren Chavarria, ELVIRA Assist.
[2022-07-15] MEDS: OXYCODONE IR 5 MG TABLET 10 MG PO (13:24)
--- NOTE | 2022-07-15 15:01 | PC.NURSE ---
Pt discharged home at 1415, escorted off floor in wheelchair accompanied by friend and hospital staff. IV removed, discharge teaching completed including dressing changes, new medications and follow up appointments. All questions answered. Pt left the floor with all belongings.
--- NOTE | 2022-07-15 16:39 | PM.DS.1 ---
History of Present Illness History of Present Illness Date Patient Seen: 07/13/22 Chief complaint: vomiting s/p abd surgery 2 wks ago Narrative: 71-year-old woman 2 weeks status post open ventral hernia repair of a large abdominal incisional hernia with retro rectus mesh placement. She had surgical drains which were within the abdominal wall removed several days ago in surgical clinic and subsequently she developed abdominal pain and nausea. Yesterday she had significant emesis and has been unable to keep food down. On arrival last night to the emergency department at [facility] she was found to have a white blood cell count of 18 afebrile vital signs were within normal limits. CT abdomen pelvis demonstrates extensive postsurgical changes within the abdominal wall with fluid collections. No distinct walled fluid collection. She feels significantly better than she did last night at admission. No further nausea or emesis. After fluid resuscitation white blood cell count is now 10. She has had no wound drainage from the incision she reports that the surgical drains been serosanguineous character. Discharge Providers Provider Date of admission: 07/14/22 01:15 Discharge Date: 07/15/22 Primary care physician: Vidhya Don MD Consults: 07/14/22 10:53 Consult to Physical Therapy Evaluate & Treat Comment: Physician Instructions: PT eval after surgery, assist w/dispo recs 07/15/22 09:23 Consult to Home Health Routine Comment: Reason For Exam: Home Health Services upon Discharge Discharge provider: Souleymane Chau MD Summary Hospital Course Discharge Diagnosis: Seroma at surgical site Hospital Course: Patient was admitted to the hospital for abdominal pain and dehydration. CT abdomen pelvis demonstrated a large fluid collection within the anterior abdominal wall. It was unclear whether the fluid collection represented a seroma or abscess and as she was symptomatic from its volume and there was concern that if infection was present it could lead to mesh infection she was brought to the operating room for an incision and drainage. A significant volume of serous fluid was removed, there was a small degree of fat necrosis within the subcutaneous tissue and cultures demonstrated no organisms or growth within the fluid. Following day she was in stable condition pain was well controlled with oral medication she is ambulatory and tolerating a diet and therefore discharged home with drains in place. She was sent prophylactically home on a 1 week course of Bactrim. Time Spent with Patient Time spent: Greater than 30 minutes Exam Vital Signs (past 8 hours): - 07/15/22 11:59 Temperature 97.5 F L Pulse Rate 67 Respiratory Rate 17 Blood Pressure 106/48 L Pulse Oximetry 98 Oxygen Flow Rate 0 Oxygen Delivery Method Room Air Oxygen Flow Rate 0 Narrative Exam Narrative: General adult woman alert oriented no acute distress Chest nonlabored respiration Abdomen soft appropriately tender to palpation. Drains serosanguineous. Dressing to midline is clean dry intact Objective Labs 07/15/22 05:51 07/15/22 05:51 Labs: Laboratory Results - last 24 hr 07/15/22 07/15/22 05:51 05:51 WBC 11.7 H RBC 3.05 L Hgb 8.9 L Hct 26.1 L MCV 85.5 MCH 29.1 MCHC 34.1 RDW 13.7 Plt Count 251 Neut % (Auto) 88.1 H Lymph % (Auto) 6.[address] [place] % (Auto) 3.8 Eos % (Auto) 0.8 L Baso % (Auto) 0.5 Neut # (Auto) 57936 H Lymph # (Auto) [address] [place] # (Auto) 500 Eos # (Auto) 100 Baso # (Auto) 100 Sodium 137 Potassium 3.8 Chloride 106 Carbon Dioxide 26 BUN 15 Creatinine 0.79 Estimated GFR > 60 BUN/Creatinine Ratio 19.0 Glucose 130 H Calcium 7.8 L PFSH Medical History Arthritis Asthma Diverticulitis (2020) Surgical History History of colostomy reversal (08/2021) History of knee replacement History of partial hysterectomy (1974) Hx of foot surgery (~2016) Hx of hernia repair (2021) Hx of knee surgery Hx of shoulder surgery Hx of thumb surgery (2008) Hx of tonsillectomy (1962) Status post Daljit's procedure (03/27/21) Social History household members: none Smoking Status: Never smoker alcohol intake: current Discharge Plan Discharge Plan Patient Disposition: Home Provider Discharge Comment: -Okay to shower with drains covered as instructed. -daily sterile gauze over midline incision -empty drains as instructed -Do not submerge wounds in water until seen in follow-up. -No lifting >20 lbs x 4 weeks. -Walking only for exercise for 4 weeks. -No driving while taking narcotics. Discharge orders & Medications Prescriptions: New oxycodone 5 mg tablet 5 mg PO Q6H PRN (Reason: pain) Qty: 30 0RF sulfamethoxazole-trimethoprim [Bactrim DS] 800-160 mg tablet 1 tab PO BID Qty: 14 0RF Continued tramadol 50 mg tablet 50 mg PO TID PRN (Reason: pain) Qty: 20 0RF telmisartan 80 mg tablet 80 mg PO DAILY montelukast 10 mg tablet 10 mg PO DAILY metoprolol succinate 50 mg tablet extended release 24 hr 50 mg PO DAILY escitalopram oxalate 10 mg tablet 10 mg PO DAILY Patient Comments: At bedtime doxycycline hyclate 100 mg capsule 100 mg PO DAILY cholecalciferol (vitamin D3) 50 mcg (2,000 unit) capsule 50 mcg PO DAILY bupropion HCl 300 mg tablet extended release 24 hr 300 mg PO DAILY Patient Comments: With weight loss [id number] 5,000 mcg-100 mg-5 mg capsule 1 cap PO DAILY cetirizine [Zyrtec] 10 mg tablet 10 mg PO DAILY pantoprazole 40 mg Tablet,Delayed Release (Dr/Ec) 40 mg PO BID docusate sodium [Colace] 100 mg capsule 100 mg PO BID Qty: 30 0RF acetaminophen [Tylenol] 325 mg capsule 650 mg PO QID PRN (Reason: pain) Qty: 60 0RF ibuprofen 200 mg tablet 400 mg PO Q6H Qty: 60 0RF Discontinued oxycodone 5 mg tablet 5 mg PO Q6H PRN (Reason: pain) Qty: 30 0RF Follow up/Referrals: Souleymane Chau MD [Physician] - 1 Week Diet/Activity/Treatments Diet: Diet as Tolerated Skin/Wound/Dressing Care Report to your healthcare provider any signs of infection, such as:: chills, fever, increased pain, unusual drainage and unusual redness Visit Report/Discharge Packet Stand Alone Forms: Patient Portal/API, Stroke Signs & Symptoms Discharge Data Primary Care Provider: Vidhya Don
== END 2022-07-15 14:15 | disposition home health service (06) | DRG 920 ==
LOC: ED 22:43 → AC 07-14 01:48
PROVIDERS: Surgery; Admitting Provider Surgery; Emergency Provider Emergency Medicine; PCP Internal Medicine Geriatric Medicine; Referring Provider Emergency Medicine; Visit Provider Surgery
PROC: 0J9800Z Drainage of Abdomen Subcutaneous Tissue and Fascia with Drainage Device, Open Approach (ICD-10-PCS; principal; 2022-07-14 16:00)
DX: L76.34 Postprocedural seroma of skin and subcutaneous tissue following other procedure (principal); I96 Gangrene, not elsewhere classified; E86.0 Dehydration; I10 Essential (primary) hypertension; K21.9 Gastro-esophageal reflux disease without esophagitis; Z20.822 Contact with and (suspected) exposure to COVID-19
CPT/HCPCS: 10140; 36415; 71045; 74177; 80048; 80053; 83605; 83690; 84145; 85025; 85610; 85730; 87040; 87070; 87075; 87077; 87205; 87635; 93005; 96365; 96375; 97161; 99284; 99285; C9803; C9113; J1170; J1200; J1650; J2270; J2405; J2543; J2704; J2930; J3010; J7121; Q9967

== ENCOUNTER 2022-07-27 18:18 | Emergency (ER) | payer MEDICARE, OTHER, SELFPAY ==
[2022-07-14 02:39] VITALS: BMI 35.5
[2022-07-27 18:32] VITALS: BP 137/79; PULSE 89; RESP 20; TEMP 36.7; O2SAT 98; BMI 34.4
--- NOTE | 2022-07-27 20:05 | ED.RECABL ---
HPI - Recheck/Abnormal Lab/Rx General Chief Complaint: Recheck/Abnormal Lab/Rx Stated Complaint: states drain is coming out Time Seen by Provider: 07/27/22 19:43 Source: patient Mode of arrival: Ambulatory History of Present Illness HPI narrative: 71-year-old female nonsmoker with history of hypertension, GERD and recent hospitalization and surgical intervention for an abdominal wall abscess presents with a chief complaint that her drain is no longer functioning appropriately. She states that a few days ago the inferior of her 2 NIKI drains came out and after consultation with her surgeon she was told that as long as her existing drain continued to function that there would be no issues. She states the drain was intended to be in place until her daily output was less than 30 cc. She states that sometime over the past day or 2 it was no longer functioning and when she depresses the bulb it immediately reinflated it is and is no longer feeling. Yesterday she still had 80 cc out. She is otherwise well and free of complaint denies any fever or chills nor any increasing pain. She is not having drainage from around the tube. She is moving her bowels without difficulty and denies any urinary complaints Related Data Home Medications Medication Instructions Recorded Confirmed biotin 5,000 mcg-choline 100 1 cap PO DAILY 06/09/22 07/21/22 mg-silicon 5 mg capsule bupropion HCl 300 mg 24 hr tablet, 300 mg PO DAILY Trying out to see 06/09/22 07/21/22 extended release if it helps cetirizine 10 mg tablet (Zyrtec) 10 mg PO DAILY Allergies 06/09/22 07/21/22 cholecalciferol (vitamin D3) 50 50 mcg PO DAILY 06/09/22 07/21/22 mcg (2,000 unit) capsule doxycycline hyclate 100 mg capsule 100 mg PO DAILY Rosacea 06/09/22 07/21/22 escitalopram oxalate 10 mg tablet 10 mg PO DAILY Stress? 06/09/22 07/21/22 metoprolol succinate 50 mg 50 mg PO DAILY Blood pressure 06/09/22 07/21/22 tablet,extended release 24 hr montelukast 10 mg tablet 10 mg PO DAILY Allergies 06/09/22 07/21/22 telmisartan 80 mg tablet 80 mg PO DAILY Blood pressure? 06/09/22 07/21/22 pantoprazole 40 mg tablet,delayed 40 mg PO BID 06/27/22 07/21/22 release Previous Rx's Medication Instructions Recorded acetaminophen 325 mg capsule 650 mg PO QID PRN pain #60 caps 06/30/22 (Tylenol) docusate sodium 100 mg capsule 100 mg PO BID #30 caps 06/30/22 (Colace) ibuprofen 200 mg tablet 400 mg PO Q6H #60 tabs 06/30/22 tramadol 50 mg tablet 50 mg PO TID PRN pain #20 tabs 07/06/22 oxycodone 5 mg tablet 5 mg PO Q6H PRN pain #30 tabs 07/15/22 sulfamethoxazole 800 1 tab PO BID #14 tabs 07/15/22 mg-trimethoprim 160 mg tablet (Bactrim DS) Allergies Allergy/AdvReac Type Severity Reaction Status Date / Time adhesive tape Allergy Pulls Verified 07/27/22 18:39 skin off apple Allergy Makes Verified 07/27/22 18:39 mouth peel herrera Allergy Makes Verified 07/27/22 18:39 mouth peel chlorhexidine Allergy Rash Verified 07/27/22 18:39 [From Hibiclens] iodine Allergy Vergara Verified 07/27/22 18:39 minocycline Allergy Pt does Verified 07/27/22 18:39 not list reaction morphine Allergy ITCHING Verified 07/27/22 18:39 nickel Allergy Rash Verified 07/27/22 18:39 Penicillins Allergy Breathing Verified 07/27/22 18:39 valdecoxib [From Bextra] Allergy Verified 07/27/22 18:39 Review of Systems Review of Systems Narrative: GENERAL: Denies chills, fatigue, malaise, fever, sweats. HEENT: Denies sinus pain, ear pain, sore throat, difficulty swallowing, dizziness. RESPIRATORY: Denies dyspnea, cough, wheezing, hemoptysis, sputum. CARDIOVASCULAR: Denies chest pain, palpitations, orthopnea, edema, GASTROINTESTINAL: See HPI : Denies dysuria, frequency, incontinence, hematuria, urinary retention. MUSCULOSKELETAL: denies weakness, joint pain, or bony pain SKIN: Denies rash, skin lesions, or other NEUROLOGIC: Denies weakness, headache, numbness, change in speech, confusion, seizures, incoordination. PSYCHIATRIC: No concerning psychosocial issues. 12 point review of systems is negative except for those stated above Patient History Medical History Arthritis Asthma Diverticulitis (2020) Surgical History History of colostomy reversal (08/2021) History of knee replacement History of partial hysterectomy (1974) Hx of foot surgery (~2016) Hx of hernia repair (2021) Hx of knee surgery Hx of shoulder surgery Hx of thumb surgery (2008) Hx of tonsillectomy (1962) Status post Daljit's procedure (03/27/21) Social History household members: none Smoking Status: Never smoker alcohol intake: current Smoking Status: Never smoker alcohol intake frequency: holidays/special occasions only Substance Use Type: does not use Exam Narrative Exam Narrative: GENERAL: 71[] year old patient appears stated age. Well-developed patient, in mild distress. HEAD: Atraumatic. Normocephalic. EYES: Pupils equal round and reactive. Extraocular motions intact. No scleral icterus. No injection or drainage. ENT: Nose without bleeding, purulent drainage. Throat without erythema, tonsillar hypertrophy or exudate. Airway patent. NECK: Trachea midline. Non tender CARDIOVASCULAR: Regular rate and rhythm without murmurs, gallops, or rubs. RESPIRATORY: Clear to auscultation. Breath sounds equal bilaterally. No wheezes, rales, or rhonchi. GASTROINTESTINAL: Abdomen soft, non-tender, nondistended. Dressing taken down and drain and sutures are still in place, there is some serosanguineous drainage in the bulb but attempts to advance the tube are unsuccessful and depressing the bulb does not result in output, the balloon immediately reinflated. EXTREMITIES: No edema or joint tenderness. BACK: Nontender without deformity or crepitance. No flank tenderness. NEURO: AOx3. SKIN: No rash or erythema of visible areas Initial Vital Signs Initial Vital Signs: Vital Signs Temperature 98.1 F 07/27/22 18:32 Pulse Rate 89 07/27/22 18:32 Respiratory Rate 20 07/27/22 18:32 Blood Pressure 137/79 07/27/22 18:32 Pulse Oximetry 98 07/27/22 18:32 Oxygen Delivery Method Room Air 07/27/22 18:32 Course Consultations Consultation #1: Discussed with Dr. Calles. We reviewed the history and physical exam and after discussion and how well-appearing patient is she recommends patient go home and follow closely with the office tomorrow. If there is no in-house surgeon she requests that the patient and family encourage the clinic staff to reach out to the on-call provider to achieve resolution. Vital Signs Vital signs: Vital Signs - 8 hr 07/27/22 18:32 Temperature 98.1 F Pulse Rate 89 Respiratory Rate 20 Blood Pressure 137/79 Pulse Oximetry 98 Oxygen Delivery Method Room Air MDM - Recheck/Abnormal Lab/Rx MDM Narrative Medical decision making narrative: [71] year old patient presents with problem with her surgical drain Multiple etiologies for patient's symptoms considered including, but not limited to: [Dislodged drain, broken 2, versus other] Prior Charts reviewed in our EMR Primary Historian: patient Consultations: Discussed with on-call General surgery Patient is largely asymptomatic and though drained does not appear to be functioning there is no indication that she would need admission or immediate intervention tonight. Please note discussion with General surgery above. Patient is appropriate for discharge and will follow closely Findings and discharge diagnosis discussed with patient/family followed by verbalization of understanding Return precautions discussed with patient/family whom verbalize understanding of diagnosis and plan Discharge Plan Departure Patient Disposition: Home Clinical Impression: Post surgical complication Instructions: DI with Wound Drains Activity Restrictions/Additional Instructions: *You have been diagnosed with [drain malfunction postoperative. As we discussed, Dr. Calles wants you to contact the [facility] office tomorrow morning to arrange for office follow up] *What to do: *Please continue to take your regular medications as directed. [ ] New medication prescriptions sent to your pharmacy: [ ] [ ] New medication written as a paper prescription [ ] No new medications given *Return to Emergency Department if you should have any new, worsening or concerning symptoms, such as [fever greater than 101 F, shaking chills, worsening pain, persistent vomiting or other bothersome symptoms] Prescriptions: No Action tramadol 50 mg tablet 50 mg PO TID PRN (Reason: pain) Qty: 20 0RF telmisartan 80 mg tablet 80 mg PO DAILY montelukast 10 mg tablet 10 mg PO DAILY metoprolol succinate 50 mg tablet extended release 24 hr 50 mg PO DAILY escitalopram oxalate 10 mg tablet 10 mg PO DAILY Patient Comments: At bedtime doxycycline hyclate 100 mg capsule 100 mg PO DAILY cholecalciferol (vitamin D3) 50 mcg (2,000 unit) capsule 50 mcg PO DAILY bupropion HCl 300 mg tablet extended release 24 hr 300 mg PO DAILY Patient Comments: With weight loss wvseee-ooyybav-lhtsmul 5,000 mcg-100 mg-5 mg capsule 1 cap PO DAILY cetirizine [Zyrtec] 10 mg tablet 10 mg PO DAILY pantoprazole 40 mg Tablet,Delayed Release (Dr/Ec) 40 mg PO BID docusate sodium [Colace] 100 mg capsule 100 mg PO BID Qty: 30 0RF acetaminophen [Tylenol] 325 mg capsule 650 mg PO QID PRN (Reason: pain) Qty: 60 0RF ibuprofen 200 mg tablet 400 mg PO Q6H Qty: 60 0RF oxycodone 5 mg tablet 5 mg PO Q6H PRN (Reason: pain) Qty: 30 0RF sulfamethoxazole-trimethoprim [Bactrim DS] 800-160 mg tablet 1 tab PO BID Qty: 14 0RF Referrals: Fatemeh Calles MD [Physician] - Vidhya Don MD [Primary Care Provider] - Stand Alone Forms: Patient Portal/API
--- NOTE | 2022-07-27 21:00 | PC.NURSE ---
attempted to dc pt, stated she want to talk to the Dr prior to being dc Dr Cardoza informed
--- NOTE | 2022-07-27 21:35 | PC.NURSE ---
incision area covered with abd pad and tape, and pt secured the jasmin drain incision intact, irritation noted around where previous dressing was taped
== END 2022-07-27 21:38 | disposition home or self-care (01) ==
PROVIDERS: Emergency Provider Emergency Medicine; PCP Internal Medicine Geriatric Medicine; Referring Provider Surgery
DX: T81.9XXA Unspecified complication of procedure, initial encounter (principal); Z79.899 Other long term (current) drug therapy
CPT/HCPCS: 99281

== ENCOUNTER → 2022-09-09 12:02 | Outpatient (CLI) | payer MEDICARE, OTHER, SELFPAY ==
[2022-07-28 08:00] VITALS: BMI 35.5
[2022-09-09 12:33] LABS: Add Manual Diff / Slide Review NO; Basophils Absolute Auto 0 /uL (0-100); Basophils Percent Auto 0.5 % (0-2); Eosinophils Absolute Auto 100 /uL (0-450); Eosinophils Percent Auto 1.8 % (2-4); Hematocrit 34.9 % (36-46); Hemoglobin 11.7 g/dL (12.0-16.0); Lymphocytes Absolute Auto 1300 /uL (1100-4500); Lymphocytes Percent Auto 18.5 % (25-40); Mean Corpuscular HGB Conc 33.4 % (30-36); Mean Corpuscular Hemoglobin 27.4 PG (26-34); Mean Corpuscular Volume 81.9 fL (80-100); Monocytes Absolute Auto 500 /uL (0-900); Monocytes Percent Auto 7.4 % (3-14); Neutrophils Absolute Auto 5100 /uL (1500-7000); Neutrophils Percent Auto 71.8 % (50-75); Platelet Count 397 X10^3/uL (150-400); Red Blood Cell Count 4.27 X10^6/uL (4.0-5.2); Red Cell Distribution Width 15.7 % (11.6-14.8); White Blood Cell Count 7.2 X10^3/uL (4.5-11.0)
[2022-09-09 12:48] LABS: BUN Creatinine Ratio 20.5 (6-22); Blood Urea Nitrogen 16 mg/dL (7-17); Calcium 9.1 mg/dL (8.4-10.2); Carbon Dioxide 28 mmol/L (22-32); Chloride 102 mmol/L (98-107); Estimated Glomerular Filt Rate > 60 mL/min (>60); Glucose 101 mg/dL (80-110); HEMOLYSIS < 15 (0-50); Potassium 4.2 mmol/L (3.4-5.1); Sodium 138 mmol/L (137-145)
[2022-09-09 13:00] LABS: HEMOLYSIS < 15 (0-50); Iron 52 ug/dL (37-170)
[2022-09-09 13:11] LABS: Percent Iron Saturation 23 % (15-50); Total Iron Binding Capacity 222 ug/dL (265-497); Transferrin 176 mg/dL (206-381)
== END ==
PROVIDERS: PCP Internal Medicine Geriatric Medicine; Referring Provider Surgery; Visit Provider Surgery
DX: L02.211 Cutaneous abscess of abdominal wall (principal); T88.8XXA Other specified complications of surgical and medical care, not elsewhere classified, initial encounter; R14.0 Abdominal distension (gaseous)
CPT/HCPCS: 36415; 80048; 83540; 83550; 85025; 99212

== ENCOUNTER → 2022-09-14 13:27 | Outpatient (CLI) | payer MEDICARE, OTHER, SELFPAY ==
[2022-07-28 08:00] VITALS: BMI 35.5
--- NOTE | 2022-09-14 13:28 | DI.CT.S_ITS ---
PROCEDURE: CT ABDOMEN PELVIS W CON INDICATIONS: abdominal wall pain TECHNIQUE: After the administration of oral and IV contrast, axial sections were acquired from the lung bases to the pubic symphysis. Coronal and sagittal reformats were performed. For radiation dose reduction, the following was used: automated exposure control, adjustment of mA and/or kV according to patient size. COMPARISON: [facility], CT, CT ABDOMEN PELVIS W CON, 07/13/2022, 23:19. [facility], CT, CT ABDOMEN PELVIS WITHOUT CONTRAST, 01/12/2022, 16:38. [facility], CT, CT ABDOMEN PELVIS W CON, 06/16/2022, 12:11. FINDINGS: Image quality: Excellent. Lung bases: Unremarkable. Heart: No significant findings. ABDOMEN: Liver: Unremarkable. There is a 2.4 cm cyst in the right hepatic lobe. Gallbladder: Unremarkable. Biliary ducts: Unremarkable. Pancreas: Unremarkable. Spleen: Unremarkable. Adrenal Glands: Unremarkable. Kidneys and Ureters: Unremarkable. Stomach and Bowel: Stomach, small bowel loops, and colon are unremarkable. Peritoneum: No abnormal intraperitoneal fluid. No free air. Ventral Wall: There is a large fluid collection in the anterior abdominal wall measuring 4.6 cm deep, 25.8 cm transverse and 22.2 cm cephalocaudal, demonstrating peripheral enhancement consistent with abscess. Cyst fluid collection has significantly increased in size compared to 07/13/2022. Abdominal Nodes: No retroperitoneal or mesenteric adenopathy by size criteria. Vessels: Aorta and inferior vena cava are normal in size. PELVIS: Pelvic Organs: Unremarkable. Bladder: Unremarkable. Pelvic Nodes: No enlarged lymph nodes. Miscellaneous: No inguinal hernias are seen. Bones: Unremarkable. IMPRESSION: 1. A large abscess in the anterior abdominal wall measuring 4.6 x 25.8 x 22.2 cm. A message was left for Dr. Chau to call. If clinically indicated, the abscess can be joint percutaneously under ultrasound or CT guidance. A message was also left for the on-call surgeon Dr. Vieyra. The patient was instructed to contact Dr. Chau immediately for instruction. Dictated by: Padmini Barnett M.D. on 09/14/2022 at 15:17 Approved by: Padmini Barnett M.D. on 09/14/2022 at 15:42
== END ==
PROVIDERS: PCP Internal Medicine Geriatric Medicine; Referring Provider Surgery; Visit Provider Surgery
DX: K65.1 Peritoneal abscess (principal)
CPT/HCPCS: 74177; Q9967

== ENCOUNTER → 2022-09-15 15:11 | Outpatient (CLI) | payer MEDICARE, OTHER, SELFPAY ==
[2022-09-14 15:25] VITALS: BMI 35.5
[2022-09-15 16:18] LABS: Appearance Urine UA SL CLOUDY; Bilirubin Urine UA NEGATIVE (NEGATIVE); Color Urine UA YELLOW; Glucose Urine UA NEGATIVE (Negative); Ketones Urine UA TRACE (NEGATIVE); Leukocyte Esterase Urine UA 1+ (NEGATIVE); Nitrite Urine UA NEGATIVE (Negative); Occult Blood Urine UA NEGATIVE (Negative); Protein Urine UA NEGATIVE (Negative); Urobilinogen Urine UA 0.2 E.U./dL (0.2)
[2022-09-15 16:30] LABS: RBC Urine None Seen (0-5/HPF); Squamous Epithelial Cell Urine 1-5 /HPF (0-5/HPF); WBC Urine 1-5/HPF (0-5/HPF)
[2022-09-15 16:31] LABS: Amorphous Sediment Urine 2+; Bacteria Urine Few (2-10); Calcium Oxalate Crystals Urine Moderate; Renal Epithelial Cells Urine 0-1/HPF (0-1/HPF)
[2022-09-15 16:32] LABS: Culture Indicated Urine Specimen Cultured
== END ==
PROVIDERS: PCP Internal Medicine Geriatric Medicine; Referring Provider Surgery; Visit Provider Surgery
DX: N39.0 Urinary tract infection, site not specified (principal); T88.8XXS Other specified complications of surgical and medical care, not elsewhere classified, sequela; Z68.34 Body mass index [BMI] 34.0-34.9, adult
CPT/HCPCS: 81001; 87086; 99212